=== PATIENT | female | born 1955 ===

== ENCOUNTER 2018-01-28 06:07 | Inpatient (IN) | payer OTHER ==
--- NOTE | 2018-01-28 06:15 | C.PDOC ---
History Of Present Illness Patient last seen at baseline was around 9PM before going to bed. Pt woke up around 5:30 and tried to go to the bathroom and felt that her right leg was weak and her right arm as well. Speaking in complete sentences. States her right jaw feels tight, NO chest pain. No f/c/n/v. Patient does move all extremities. Patient has a history of previous TIA and on plavix Time Seen by Provider: 01/28/18 06:13 History Per: Patient History/Exam Limitations: no limitations Onset/Duration Of Symptoms: Hrs (8) Current Symptoms Are (Timing): Better Severity: Moderate Pain Scale Rating Of: 5 Reports Recently: Seen In ED, Treated By A Physician Recent travel outside of the [place]: No Additional History Per: Family Past Medical History Reviewed: Historical Data, Nursing Documentation, Vital Signs Family History: States: No Known Family Hx Review Of Systems Constitutional: Negative for: Fever, Chills Eyes: Negative for: Vision Change ENT: Negative for: Throat Pain Cardiovascular: Negative for: Chest Pain Respiratory: Negative for: Shortness of Breath Gastrointestinal: Negative for: Nausea, Vomiting, Abdominal Pain Genitourinary: Negative for: Dysuria Musculoskeletal: Negative for: Back Pain Skin: Negative for: Rash Neurological: Positive for: Weakness Psych: Negative for: Anxiety Physical Exam - Physical Exam Appears: Non-toxic Skin: Warm, Dry Head: Normacephalic Eye(s): bilateral: Normal Inspection Oral Mucosa: Moist Neck: Trachea Midline, Supple Chest: Symmetrical Cardiovascular: Rhythm Regular Respiratory: No Rales, No Rhonchi, No Wheezing Gastrointestinal/Abdominal: Soft, No Tenderness, No Distention Back: Normal Inspection Extremity: No Tenderness Extremity: Bilateral: Atraumatic, No Pedal Edema, Normal Color And Temperature Pulses: Left Dorsalis Pedis: Normal, Right Dorsalis Pedis: Normal Neurological/Psych: Oriented x3, Normal Cognition Gait: Unable To Assess ED Course And Treatment ECG: Interpreted By Me, Viewed By Me ECG Rhythm: Sinus Rhythm (61), Nonspecific Changes O2 Sat by Pulse Oximetry: 98 Pulse Ox Interpretation: Normal Progress Note: 6:[address] epstein. Not tpa candidate. Give 81 mg asa, mri/a, eeg. 6:52 am pt now states that she also fell,and hurt her back. no loc Critical Care Time - Critical Care Note Total Time (in mins): 30 Documented critical care: time excludes all time spent performing seperately billable procedures. NIHSS Stroke Scale - Date/Time Evaluation Performed Date Performed: 01/28/18 Time Performed: 06:08 When Was NIHSS Performed: Baseline - How Severe is the Stroke Level of Consciousness: 0=Alert LOC to Questions: 0=Both comments correct LOC to commands: 0=Obeys both correctly Best Gaze: 0=Normal Visual: 0=No visual loss Facial: 0=Normal Motor Arm - Left: 0=No drift Motor Arm - Right: 1=Drift noted before 10 sec Motor Leg - Left: 0=No drift Motor Leg - Right: 3=No effort against gravity (falls immediately) Limb Ataxia: 0=Absent Sensory: 0=Normal Best Language: 0=No aphasia Dysarthia: 0=Normal articulation Extinction & Inattention (Neglect): 0=Normal, no object Score: 4 rTPA Inclusion/Exclusion - Refusal of Treatment Patient Refused Treatment: No - Inclusion Criteria for Altepase Patient is 18 years or Older: Yes The Clinical Diagnosis of Ischemic Stroke That is Causing a Potentially Disabling Neurological Deficit: Yes Time of Onset is Well Established to be Less Than 270 Minute Before Treatment Would Begin: No Risk/Benefit Discussed With Patient/Family Member Present: Yes - Exclusion Criteria for Altepase Uncontrolled Hypertension at Time of Treatment (Systolic BP above 185 or Diastolic BP above 110 mmHg): No Active Internal Bleeding: No Known Bleeding Diathesis Including but Not Limited to: Platelets Below 100,000/mm,PTT Above 40 sec After Heparin Use, Current Use of Oral Anitcoagulant With INR Greater Than 1.7 or PT Greater Than 15 secs: No Evidence of an Intracranial Hemorrhage: No Evidence of Major Acute Infarct With Signs Greater Than 1/3 MCA Territory: No Suspicion of Subarachnoid Hemorrhage on Pretreatment Evaluation Even if CT Head Negative For Hemorrhage: No - Warning to TPA With Conditions Following Conditions Weighed Against Anticipated Benefit: Yes Condition: Increase Risk of Bleed Due to Comorbid Condition Additional Condition (For 3-4.5 Hour Window): Prior Stroke and Diabetes, Any anticoagulant use prior to admission (Even if INR less than 1.7) Disposition Counseled Patient/Family Regarding: Studies Performed, Diagnosis - Disposition Disposition Time: 06:13 Condition: CRITICAL - POA Core Measure Indicators: Code Stroke - Clinical Impression Clinical Impression: Right sided weakness Physician Patient Turnover Patient Signed Over To: Raswant,Dez Handoff Comments: pending labs, ct, neuro consult and dispo
[2018-01-28] MEDS ORDERED: Iodixanol 320 MG/ML 100 ML BOTTLE IV ONE (06:21)
[2018-01-28 06:39] LABS: INR 1.1; PROTHROMBIN TIME 11.6 SECONDS (9.7-12.2)
[2018-01-28 07:05] LABS: ALB/GLOB RATIO 1.4 (1.0-2.1); ALBUMIN 3.4 g/dL (3.5-5.0); ALT/SGPT 29 U/L (9-52); AST/SGOT 29 U/L (14-36); BLOOD UREA NITROGEN 15 mg/dL (7-17); CALCIUM 8.2 mg/dl (8.6-10.4); GFR NON-AFRICAN AMERICAN > 60; HDL CHOLESTEROL 68 mg/dL (30-70)
[2018-01-28] MEDS ORDERED: Sodium Chloride 0.9% 1,000 ML ONE (07:10)
[2018-01-28] MEDS: Sodium Chloride 0.9% 1,000 ML IV SCH ×2 (07:10→18:58)
[2018-01-28 07:16] LABS: BASO % 0.3 % (0.0-2.0); EOS # 0.1 K/uL (0.0-0.7); EOS % 1.1 % (0.0-4.0); HEMOGLOBIN 12.5 g/dL (11.0-16.0); LDL CHOLESTEROL 59 mg/dL (0-129); LYMPH # 2.1 K/uL (1.0-4.3); LYMPH % 25.1 % (20.0-40.0); MEAN CELL VOLUME 91.2 fL (81.0-99.0); MEAN CORPUSCULAR HEMOGLOBIN 31.4 pg (27.0-31.0); MEAN CORPUSCULAR HGB CONC 34.4 g/dL (33.0-37.0); MEAN PLATELET VOLUME 7.8 fL (7.2-11.7); MONO # 0.4 K/uL (0.0-0.8); MONO % 5.4 % (0.0-10.0); NEUT # 5.7 K/uL (1.8-7.0); NEUT % 68.1 % (50.0-75.0); NRBC % 0.1 % (0.0-2.0); RBC 3.99 Mil/uL (3.80-5.20); RED CELL DISTRIBUTION WIDTH 13.4 % (11.5-14.5); WHITE BLOOD COUNT 8.3 K/uL (4.8-10.8)
[2018-01-28 08:14] LABS: SQUAMOUS EPITHIAL < 1 /hpf (0-5); URINE BILIRUBIN NEGATIVE (NEGATIVE); URINE BLOOD 1+ (NEGATIVE); URINE CLARITY Clear (Clear); URINE COLOR Straw (YELLOW); URINE GLUCOSE (UA) NORMAL (Normal); URINE LEUKOCYTE ESTERASE NEG Leu/uL (Negative); URINE PROTEIN NEGATIVE (NEGATIVE); URINE UROBILINOGEN NORMAL mg/dL (0.2-1.0)
--- NOTE | 2018-01-28 08:21 | CT ---
Date of service: 01/28/2018 PROCEDURE: CT HEAD WITHOUT CONTRAST. HISTORY: Code Stroke COMPARISON: None available. TECHNIQUE: Axial computed tomography images were obtained through the head/brain without intravenous contrast. Radiation dose: Total exam DLP = 1003.37 mGy-cm. This CT exam was performed using one or more of the following dose reduction techniques: Automated exposure control, adjustment of the mA and/or kV according to patient size, and/or use of iterative reconstruction technique. FINDINGS: HEMORRHAGE: No intracranial hemorrhage. BRAIN: Scattered focal lucencies in the subcortical and periventricular white matter suggestive for chronic microvascular ischemic change. Focal encephalomalacia from chronic infarcts in the right frontal and left parietal lobes. VENTRICLES: Generalized parenchymal atrophy with symmetrical dilatation of the ventricles and sulci. CALVARIUM: Unremarkable. Small bony exostosis emanating from the anterior right frontal cranium. PARANASAL SINUSES: Unremarkable as visualized. No significant inflammatory changes. MASTOID AIR CELLS: Unremarkable as visualized. No inflammatory changes. OTHER FINDINGS: None. IMPRESSION: No acute intracranial abnormality. Chronic microvascular ischemic changes. Encephalomalacia from chronic infarcts in the right frontal and left parietal regions. Generalized parenchymal atrophy as demonstrated by symmetrical dilatation of the ventricles and sulci. If there is persistent concern for acute ischemic change, further evaluation with MRI is recommended. These findings were preliminarily reported at 6:44 a.m. on 01/28/[address] Chester Barcenas from [facility].
[2018-01-28 08:30] VITALS: RESP 20
--- NOTE | 2018-01-28 08:38 | RAD ---
Chest x-ray single frontal view HISTORY: Code stroke. COMPARISON: 01/28/2018 FINDINGS: Mild venous congestion. Right hilar prominence. Tortuous aorta with atherosclerotic calcification degenerative changes in the spine and shoulders. Impression: Mild venous congestion. Right hilar prominence.
--- NOTE | 2018-01-28 09:03 | CP.PCM.HP ---
<Yessenia Remy - Last Filed: 01/28/18 17:33> History of Present Illness - History of Present Illness History of Present Illness: CC "right sided arm and leg weakness, right jaw feels tired" HPI: Patient is a 62 year old female who presents after she experienced right sided arm and leg weakness after she woke up at 5am this morning. She was last seen at baseline at 9pm prior to going to bed. She states she took 1 to 2 steps after she woke up and experienced shaking of her right leg after which she fell straight down to the floor. She found she could no longer move her right arm or her right leg. She landed on her buttock, aggravating her pain in her low back. She denies losing consciousness or hitting her head when she fell down. Daughter at bedside states she heard her fall and ran to patient and found her with her eyes open, not shaking, but unable to move her right arm or her right leg. Patient states she felt that the right side of her jaw was more tired and heavy, but was unable to state if she felt like she had any slurred speech. She experienced some nausea at that time. Daughter called ambulance to bring patient in to the hospital via ambulance. She states she began to recover strength in her right arm after she arrived to the ED. She currently states she is unable to move her right leg. She states she had a prior TIA in March 2016 when she was admitted to [facility], and has been on Plavix since. She was able to move all her extremities after her last TIA. She currently denies fevers, chills, headache, lightheadedness, chest pain, shortness of breath, abdominal pain, vomiting, diarrhea, diaphoresis, palpitations, urinary discomfort, leg pain or leg swelling. She admits she had a recent left ear infection for which she was treated with a 7 day course of Penicillin which she finished yesterday. PMH: Hyperlipidemia, TIA, Vertigo, recent left ear infection PSH: L4-5 herniated disk, abdominal hernia repair Social hx: denies tobacco, alcohol or drug use. Currently works as a cashier courtesy booth. Family hx: no history of stroke, mother had FL in her 70s. Father had MIs in his 60s. Home meds: Lipitor 20mg PO, Plavix 75mg, Meclizine 25mg, PCN Allergies: NKDA PMD: Dr. Garry Brady Neuro: Dr. Alanis [phone] Health care proxy: Inderjit () [phone] No advance directive Full code Present on Admission - Present on Admission Any Indicators Present on Admission: No Review of Systems - Constitutional Constitutional: Weakness. absent: Chills, Fever - EENT Eyes: absent: Change in Vision, Loss of Vision Ears: absent: Decreased Hearing, Dizziness - Cardiovascular Cardiovascular: absent: Chest Pain, Chest Pain at Rest, Diaphoresis, Dyspnea, Palpitations, Syncope - Respiratory Respiratory: absent: Cough, Dyspnea - Gastrointestinal Gastrointestinal: Nausea. absent: Diarrhea, Vomiting - Genitourinary Genitourinary: absent: Dysuria, Urinary Incontinence - Musculoskeletal Musculoskeletal: Back Pain, Muscle Weakness - Integumentary Integumentary: absent: Pruritus, Rash - Neurological Neurological: Weakness. absent: Headaches - Psychiatric Psychiatric: absent: Anxiety, Depression Past Patient History - Past Social History Smoking Status: Never Smoked - NEUROLOGICAL HX Cerebrovascular Accident: Yes Hx Transient Ischemic Attacks (TIA): Yes - HEENT Other/Comment: ear infection - PSYCHIATRIC Hx Substance Use: No Meds Allergies/Adverse Reactions: Allergies Allergy/AdvReac Type Severity Reaction Status Date / Time No Known Allergies Allergy Unverified 01/28/18 06:13 Physical Exam - Constitutional Appears: No Acute Distress - Head Exam Head Exam: ATRAUMATIC, NORMOCEPHALIC - Eye Exam Eye Exam: EOMI, PERRL - ENT Exam ENT Exam: Mucous Membranes Moist - Neck Exam Neck exam: Positive for: Full Rom. Negative for: Tenderness - Respiratory Exam Respiratory Exam: Clear to Auscultation Bilateral. absent: Rales, Rhonchi, Wheezes, Respiratory Distress, Stridor - Cardiovascular Exam Cardiovascular Exam: REGULAR RHYTHM, +S1, +S2. absent: Gallop, Rubs, Systolic Murmur - GI/Abdominal Exam GI & Abdominal Exam: Normal Bowel Sounds, Soft. absent: Distended, Firm, Guarding, Hernia, Rigid, Tenderness - Extremities Exam Extremities exam: Positive for: pedal pulses present. Negative for: calf tenderness, pedal edema - Neurological Exam Neurological exam: Alert, Oriented x3 Additional comments: Minimal right sided jaw droop No neglect in visual mondraogn Sensation intact in face bilaterally Left arm: Able to lift and stay lifted for 10 seconds with no drift. Good pbx operator strength. Negative German's sign. Right arm: Able to lift hand, no drift. Slightly weaker compared to left. Negative German's sign. Right leg: Unable to lift leg against gravity. Sensation intact and unchanged from left leg. Strength 3/5 Left leg: Sensation unchanged from right. Able to lift leg against gravity. No drift. Good dorsiflexion and plantarflexion. Strength 5/5. Unable to complete Romberg's since unable to stand. Able to do finger to nose without difficulty. Unable to do heel to santamaria using right leg. - Psychiatric Exam Psychiatric exam: Normal Affect, Normal Mood - Skin Skin Exam: Dry, Intact, Warm Results - Vital Signs Recent Vital Signs: Last Vital Signs Temp 98 F 01/28/18 08:20 Pulse 59 L 01/28/18 08:20 Resp 20 01/28/18 08:20 BP 127/65 01/28/18 08:20 Pulse Ox 97 01/28/18 08:20 - Labs Result Diagrams: 01/28/18 06:18 01/28/18 06:18 Labs: Laboratory Results - last 24 hr 01/28/18 01/28/18 01/28/18 06:18 06:18 06:18 WBC 8.3 RBC 3.99 Hgb 12.5 Hct 36.3 MCV 91.2 MCH 31.4 H MCHC 34.4 RDW 13.4 Plt Count 214 MPV 7.8 Neut % (Auto) 68.1 Lymph % (Auto) 25.1 [place] % (Auto) 5.4 Eos % (Auto) 1.1 Baso % (Auto) 0.3 Neut # (Auto) 5.7 Lymph # (Auto) 2.1 [place] # (Auto) 0.4 Eos # (Auto) 0.1 Baso # (Auto) 0.0 PT 11.6 INR 1.1 APTT 30 Sodium 137 Potassium 3.6 Chloride 106 Carbon Dioxide 23 Anion Gap 12 BUN 15 Creatinine 0.5 L Est GFR ( Amer) > 60 Est GFR (Non-Af Amer) > 60 Random Glucose 153 H Calcium 8.2 L Total Bilirubin 0.5 AST 29 ALT 29 Alkaline Phosphatase 66 Troponin I < 0.0120 Total Protein 5.9 L Albumin 3.4 L Globulin 2.5 Albumin/Globulin Ratio 1.4 Triglycerides 55 Cholesterol 125 LDL Cholesterol Direct 59 HDL Cholesterol 68 Urine Color Urine Clarity Urine pH Ur Specific [place] Urine Protein Urine Glucose (UA) Urine Ketones Urine Blood Urine Nitrate Urine Bilirubin Urine Urobilinogen Ur Leukocyte Esterase Urine WBC (Auto) Urine RBC (Auto) Ur Squamous Epith Cells Blood Type Antibody Screen 01/28/18 01/28/18 06:24 07:55 WBC RBC Hgb Hct MCV MCH MCHC RDW Plt Count MPV Neut % (Auto) Lymph % (Auto) [place] % (Auto) Eos % (Auto) Baso % (Auto) Neut # (Auto) Lymph # (Auto) [place] # (Auto) Eos # (Auto) Baso # (Auto) PT INR APTT Sodium Potassium Chloride Carbon Dioxide Anion Gap BUN Creatinine Est GFR ( Amer) Est GFR (Non-Af Amer) Random Glucose Calcium Total Bilirubin AST ALT Alkaline Phosphatase Troponin I Total Protein Albumin Globulin Albumin/Globulin Ratio Triglycerides Cholesterol LDL Cholesterol Direct HDL Cholesterol Urine Color Straw Urine Clarity Clear Urine pH 7.0 Ur Specific [place] 1.023 Urine Protein Negative Urine Glucose (UA) Normal Urine Ketones Negative Urine Blood 1+ H Urine Nitrate Negative Urine Bilirubin Negative Urine Urobilinogen Normal Ur Leukocyte Esterase Neg Urine WBC (Auto) < 1 Urine RBC (Auto) 1 Ur Squamous Epith Cells < 1 Blood Type B POSITIVE Antibody Screen Negative Assessment & Plan - Assessment and Plan (Free Text) Plan: Assessment/plan 62 year old female with history of TIA and HLD who presents with right sided arm and leg weakness that started this morning. Right sided weakness Acute Ischemia CVA, Left posterior parietal region - EKG: SR at 81, no ST-T changes. - CXR: 01/28/18 mild venous congestion. right hilar prominence. - CT brain (01/28/18) No acute intracranial abnormality. Chronic microvascular ischemic changes. Encephalomalacia from chronic infarcts in the right frontal and left parietal regions.Generalized parenchymal atrophy as demonstrated by symmetrical dilatation of the ventricles and sulci.If there is persistent concern for acute ischemic change, further evaluation with MRI is recommended. 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 Recommend follow-up thyroid ultrasound. Note that this report was placed in [place] review folder follow up - MRI brain (01/28/18) There appears to be small area of acute ischemia in the left posterior superior parietal subcortical region. Chronic infarcts again not ed in the left posterior parieto-occipital watershed zone and right frontal lobes unchanged.No acute intracranial hemorrhage.Suspect small arachnoid cyst right superior posterior fronto- parietal region. Mild to moderate central volume loss. - Carotid doppler (01/28/18) RIGHT: Duplex scan does not suggest hemodynamically significant stenosis of the right extracranial carotid arteries. LEFT: Duplex scan does not suggest hemodynamically significant stenosis of the left extracranial carotid arteries. - F/u ECHO report - Neurology Dr. Obando consulted, help appreciated - Case discussed with Dr. Alanis, patient's neurologist who stated that patient has history of prior TIA in Mar 2016, when her MRI revealed acute left posterior parietal infarct. Carotid dopplers at that time were negative for stenosis. MRA done at that time was also unremarkable as per Dr. Alanis. He stated that patient can have ASA. - A1c 6.3 - TSH 1.06 free T4 0.99 - Trops x2 negative - Neurochecks - f/u ESR, CRP, folate, B12, Vitamin D Meds: - ASA 81mg - Plavix 75mg PO - Crestor 10mg PO HS - NS @ 100cc/hr IV - Tylenol 650mg PRN History of HLD Crestor 10mg PO HS Lipid panel: TG 53 Chol 125 LDL 59 HDL 68 PPX: DVT: Lovenox 40mg SC daily GI: not indicated at this time Heart healthy diet, 2g Na PT/OT Case discussed with Dr. Blade Remy, PGY1 <Valeria Murguia V - Last Filed: 01/28/18 22:40> Results - Vital Signs Recent Vital Signs: Last Vital Signs Temp 98.2 F 01/28/18 14:52 Pulse 64 01/28/18 16:00 Resp 20 01/28/18 14:52 BP 122/72 01/28/18 14:52 Pulse Ox 98 01/28/18 14:52 - Labs Result Diagrams: 01/28/18 06:18 01/28/18 06:18 Labs: Laboratory Results - last 24 hr 01/28/18 01/28/18 01/28/18 06:10 06:18 06:18 WBC 8.3 RBC 3.99 Hgb 12.5 Hct 36.3 MCV 91.2 MCH 31.4 H MCHC 34.4 RDW 13.4 Plt Count 214 MPV 7.8 Neut % (Auto) 68.1 Lymph % (Auto) 25.1 [place] % (Auto) 5.4 Eos % (Auto) 1.1 Baso % (Auto) 0.3 Neut # (Auto) 5.7 Lymph # (Auto) 2.1 [place] # (Auto) 0.4 Eos # (Auto) 0.1 Baso # (Auto) 0.0 ESR PT 11.6 INR 1.1 APTT 30 Sodium Potassium Chloride Carbon Dioxide Anion Gap BUN Creatinine Est GFR ( Amer) Est GFR (Non-Af Amer) POC Glucose (mg/dL) 164 H Random Glucose Hemoglobin A1c Calcium Total Bilirubin AST ALT Alkaline Phosphatase Total Creatine Kinase CK-MB (Mass) Troponin I C-Reactive Protein Total Protein Albumin Globulin Albumin/Globulin Ratio Triglycerides Cholesterol LDL Cholesterol Direct HDL Cholesterol Vitamin B12 Folate Free T4 TSH 3rd Generation Urine Color Urine Clarity Urine pH Ur Specific [place] Urine Protein Urine Glucose (UA) Urine Ketones Urine Blood Urine Nitrate Urine Bilirubin Urine Urobilinogen Ur Leukocyte Esterase Urine WBC (Auto) Urine RBC (Auto) Ur Squamous Epith Cells Blood Type Antibody Screen 01/28/18 01/28/18 01/28/18 06:18 06:18 06:24 WBC RBC Hgb Hct MCV MCH MCHC RDW Plt Count MPV Neut % (Auto) Lymph % (Auto) [place] % (Auto) Eos % (Auto) Baso % (Auto) Neut # (Auto) Lymph # (Auto) [place] # (Auto) Eos # (Auto) Baso # (Auto) ESR PT INR APTT Sodium 137 Potassium 3.6 Chloride 106 Carbon Dioxide 23 Anion Gap 12 BUN 15 Creatinine 0.5 L Est GFR ( Amer) > 60 Est GFR (Non-Af Amer) > 60 POC Glucose (mg/dL) Random Glucose 153 H Hemoglobin A1c 6.3 Calcium 8.2 L Total Bilirubin 0.5 AST 29 ALT 29 Alkaline Phosphatase 66 Total Creatine Kinase CK-MB (Mass) Troponin I < 0.0120 C-Reactive Protein Total Protein 5.9 L Albumin 3.4 L Globulin 2.5 Albumin/Globulin Ratio 1.4 Triglycerides 55 Cholesterol 125 LDL Cholesterol Direct 59 HDL Cholesterol 68 Vitamin B12 Folate Free T4 TSH 3rd Generation Urine Color Urine Clarity Urine pH Ur Specific [place] Urine Protein Urine Glucose (UA) Urine Ketones Urine Blood Urine Nitrate Urine Bilirubin Urine Urobilinogen Ur Leukocyte Esterase Urine WBC (Auto) Urine RBC (Auto) Ur Squamous Epith Cells Blood Type B POSITIVE Antibody Screen Negative 01/28/18 01/28/18 01/28/18 07:55 11:52 11:52 WBC RBC Hgb Hct MCV MCH MCHC RDW Plt Count MPV Neut % (Auto) Lymph % (Auto) [place] % (Auto) Eos % (Auto) Baso % (Auto) Neut # (Auto) Lymph # (Auto) [place] # (Auto) Eos # (Auto) Baso # (Auto) ESR PT INR APTT Sodium Potassium Chloride Carbon Dioxide Anion Gap BUN Creatinine Est GFR ( Amer) Est GFR (Non-Af Amer) POC Glucose (mg/dL) Random Glucose Hemoglobin A1c Calcium Total Bilirubin AST ALT Alkaline Phosphatase Total Creatine Kinase 67 CK-MB (Mass) 0.61 Troponin I < 0.0120 C-Reactive Protein Total Protein Albumin Globulin Albumin/Globulin Ratio Triglycerides Cholesterol LDL Cholesterol Direct HDL Cholesterol Vitamin B12 Folate Free T4 0.99 TSH 3rd Generation 1.06 Urine Color Straw Urine Clarity Clear Urine pH 7.0 Ur Specific [place] 1.023 Urine Protein Negative Urine Glucose (UA) Normal Urine Ketones Negative Urine Blood 1+ H Urine Nitrate Negative Urine Bilirubin Negative Urine Urobilinogen Normal Ur Leukocyte Esterase Neg Urine WBC (Auto) < 1 Urine RBC (Auto) 1 Ur Squamous Epith Cells < 1 Blood Type Antibody Screen 01/28/18 01/28/18 01/28/18 18:23 18:23 18:23 WBC RBC Hgb Hct MCV MCH MCHC RDW Plt Count MPV Neut % (Auto) Lymph % (Auto) [place] % (Auto) Eos % (Auto) Baso % (Auto) Neut # (Auto) Lymph # (Auto) [place] # (Auto) Eos # (Auto) Baso # (Auto) ESR 3 PT INR APTT Sodium Potassium Chloride Carbon Dioxide Anion Gap BUN Creatinine Est GFR ( Amer) Est GFR (Non-Af Amer) POC Glucose (mg/dL) Random Glucose Hemoglobin A1c Calcium Total Bilirubin AST ALT Alkaline Phosphatase Total Creatine Kinase 69 CK-MB (Mass) 0.57 Troponin I < 0.0120 C-Reactive Protein < 5.00 Total Protein Albumin Globulin Albumin/Globulin Ratio Triglycerides Cholesterol LDL Cholesterol Direct HDL Cholesterol Vitamin B12 845 Folate 12.9 Free T4 TSH 3rd Generation Urine Color Urine Clarity Urine pH Ur Specific [place] Urine Protein Urine Glucose (UA) Urine Ketones Urine Blood Urine Nitrate Urine Bilirubin Urine Urobilinogen Ur Leukocyte Esterase Urine WBC (Auto) Urine RBC (Auto) Ur Squamous Epith Cells Blood Type Antibody Screen Attending/Attestation - Attestation I have personally seen and examined this patient.: Yes I have fully participated in the care of the patient.: Yes I have reviewed all pertinent clinical information: Yes Notes (Text): Patient seen, examined and case discussed with medical technologist. Patient was called as code stroke at 5am this morning; discussed with ED physician, Dr. Dez Rayo endorsed from prior shift. Neurology plant operations worker informed of consult. Patient not TPA candidate recommended for aspirin and started on IV fluids by ED. Patient is a former patient of Dr. Alanis, however she lost her insurance recently. Resident has contacted Dr. Alanis, and aware Dr. Obando will be seeing in the hospital. Patient has had prior history of stroke wherein she was taking Plavix as secondary stroke prophylaxis and there is no aspirin contraindication when resident has spoken with her prior neurologist. Patient has prior history of stroke; which has showed left posterior parietal infiarct. Cartoid doppler had been negative and MRA had been negative in the past. 1) Acute Ischemia CVA, Left posterior parietal region Right sided weakness Assessment/Plan * Neurology Dr. Obando consulted, help appreciated * Recommends non-contrast CT tomorrow of the head if does not show he morrhagic conversion, then suggest for coumadin * Telemetry * Echocardiogram with bubble study * Carotid ultrasounds bilaterally. * Check hemoglobin A-1 C, lipid panel, ESR, CRP, SIMONE, B12, folate, TSH, vitamin D levels. * Q 2 hour neuro-checks (note our telemetry floor support Q4H not Q2H) * Statin for goal LDL less than 70. * Permissive hypertension, do not treat blood pressure less than 220/110 (may start to normalize 48-hours after symptom onset * IV fluids normal saline at 100 mL per hour. * NPO, speech and swallow evaluation. * Resident has discussed with Dr. Alanis, patient's neurologist who stated that patient has history of prior TIA in Mar 2016, when her MRI revealed acute left posterior parietal infarct. Carotid dopplers at that time were negative for stenosis. MRA done at that time was also unremarkable as per Dr. Alanis. He stated that patient can have ASA. * EKG: SR at 81, no ST-T changes. * CXR: 01/28/18 mild venous congestion. right hilar prominence. * CT Head (01/28/18) No acute intracranial abnormality. Chronic microvascular ischemic changes. Encephalomalacia from chronic infarcts in the right frontal and left parietal regions.Generalized parenchymal atrophy as demonstrated by symmetrical dilatation of the ventricles and sulci.If there is persistent concern for acute ischemic change, further evaluation with MRI is recommended. 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 Recommend follow-u p thyroid ultrasound. Note that this report was placed in [place] review folder follow up * MRI brain (01/28/18) There appears to be small area of acute ischemia in the left posterior superior parietal subcortical region. Chronic infarcts again noted in the left posterior parieto-occipital watershed zone and right frontal lobes unchanged.No acute intracranial hemorrhage.Suspect small arachnoid cyst right superior posterior fronto- parietal region. Mild to moderate central volume loss. * Carotid doppler (01/28/18) RIGHT: Duplex scan does not suggest hemodynamically significant stenosis of the right extracranial carotid arteries. LEFT: Duplex scan does not suggest hemodynamically significant st enosis of the left extracranial carotid arteries. * Echocardiogram (no bubble): poor window, tds. normal size la, lv, ra and rv. normal lv wall motion, thickness, systolic and diastolic function with lvef [id number]%. grossly normal looking aortic, mitral, tv, pv not well seens, no pericardial effusion. * Aspirin 81mg PO daily, Plavix 75mg PO daily, Crestor 10mg PoqHS * A1c 6.3 * LEONORA X3: negative * Cardiology consult given possible embolic cause? 2. Lipid Disorder Assessment/Plan * Crestor 10mg PO HS * Lipid panel: TG 53 Chol 125 LDL 59 HDL 68 3. S/P fall Assessment/Plan * Fall risk precaution * PT/OT eval * Noted imaging above illustrated new stroke * no visible ecchymoses or bruising noted on exam 4. Impaired glucose intolerance Assessment/Plan * hgba1c: 6.3 * Monitor in the next 3-4 months to prevent overt diabetes 5. PPX: * DVT Ppx: Lovenox 40mg SC daily * GI ppx: not indicated at this time * Heart healthy diet, 2g Na * PT/OT eval * Aspiration precautions * NS 100cc/hr Disposition: neuro workup in progress. Repeat Head CT in AM. cardiology consult given possible emoblic cause to stroke. NIHSS Stroke Scale - Date/Time Evaluation Performed Date Performed: 01/28/18 Time Performed: 09:25 (patient on the floor) When Was NIHSS Performed: Other - How Severe is the Stoke Level of Consciousness: 0=Alert LOC to Questions: 0=Both comments correct LOC to commands: 0=Obeys both correctly Best Gaze: 0=Normal Visual: 0=No visual loss Facial: 0=Normal Motor Arm - Left: 0=No drift Motor Arm - Right: 1=Drift noted before 10 sec Motor Leg - Left: 0=No drift Motor Leg - Right: 3=No effort against gravity (falls immediately) Limb Ataxia: 0=Absent Sensory: 0=Normal Best Language: 0=No aphasia Dysarthia: 0=Normal articulation Extinction & Inattention (Neglect): 0=Normal, no object Score: 4
--- NOTE | 2018-01-28 09:25 | CT ---
Date of service: 01/28/2018. PROCEDURE: CT Angiography of the neck and brain. HISTORY: Right-sided weakness COMPARISON: Correlation made with concurrent CT scan brain TECHNIQUE: Contiguous helical/transaxial sections of the neck and brain were obtained from the level of the vertex of the skull to the superior mediastinum in the arteriographic phase of enhancement. Coronal and sagittal reformats or also generated. IV contrast dose: 100 cc Visipaque 320 Radiation dose: Total exam DLP = 418.33 mGy-cm. This CT exam was performed using one or more of the following dose reduction techniques: Automated exposure control, adjustment of the mA and/or kV according to patient size, and/or use of iterative reconstruction technique. FINDINGS: CAROTID ARTERIES: The aortic arch is patent. Minimal partially calcified atherosclerotic plaque changes seen along the transverse portion of the aortic. The origins of the great vessels are also. Common carotid arteries, carotid bifurcations and internal carotid arteries including petrous cavernous and supraclinoid segments are patent. There is asymmetry of the vertebral arteries left-sided which is larger in caliber/more dominant than the right side. Basilar artery is patent. 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 The left A1 segment extends distally and than bifurcates distally into left and right distal A2 segments at the level of the lateral ventricles... Note that azygos anterior cerebral artery variance are associated with other on congenital abnormalities including dysgenesis of the corpus callosum and septo-optic dysplasia as well as AVMs to name a few. The middle cerebral arteries and posterior cerebral arteries and their respective distal branches are also patent and appear relatively symmetric. No evidence of large aneurysm nor vascular malformation. OTHER FINDINGS: Note made of an elliptical shaped approximately 8.5 mm low-attenuation lesion left lobe thyroid gland of for which follow-up thyroid ultrasound is recommended. 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 Low-attenuation lesion left lobe thyroid gland. Recommend follow-up thyroid ultrasound. Note that this report was placed in PA review folder follow up
--- NOTE | 2018-01-28 12:08 | MRI ---
Date of service: 01/28/2018 PROCEDURE: MRI BRAIN WITHOUT CONTRAST HISTORY: Right sided weakness, prior of TIA COMPARISON: None available. TECHNIQUE: Multiplanar, multisequence MR images of the brain were obtained without intravenous contrast enhancement. FINDINGS: HEMORRHAGE: No acute parenchymal, subarachnoid or extra-axial hemorrhage. No evidence of hemosiderin deposition seen on gradient echo weighted sequence. DWI: There is a faint a curvilinear focus of restricted diffusion in the left posterior superior parietal subcortical white matter cyst cephalad to a more inferiorly located chronic infarct. Findings may probably represent new acute/subacute ischemic focus. BRAIN PARENCHYMA: As mentioned above, there is a chronic left posterior parieto-occipital watershed zone infarct and chronic right frontal lobe infarct. Minimal of prolonged T2 signal changes seen in the periventricular white matter that likely represents mild FLAIR related CSF interface artifact however possibility of some concomitant minimal chronic periventricular white matter ischemic changes may contribute. Suspect small arachnoid cyst right superior posterior fronto- parietal region Mild to moderate central volume loss. VENTRICLES: No obstructive hydrocephalus. CRANIUM: Calvarium intact ORBITS: Orbits and contents grossly unremarkable. PARANASAL SINUSES/MASTOIDS: There is a opacification of 1 or 2 right-sided ethmoid air cells. VASCULAR SYSTEM: Visualized major vascular flow voids at skull base patent. OTHER FINDINGS: None. IMPRESSION: There appears to be small area of acute ischemia in the left posterior superior parietal subcortical region. Chronic infarcts again noted in the left posterior parieto-occipital watershed zone and right frontal lobes unchanged. No acute intracranial hemorrhage.. Suspect small arachnoid cyst right superior posterior fronto- parietal region Mild to moderate central volume loss.. Note these findings were discussed with 5 T Nurse Lunsford at approximately 12 p.m. with written down and read back verification.
[2018-01-28 12:36] LABS: CK-MB 0.61 ng/mL (0.0-3.38)
--- NOTE | 2018-01-28 14:06 | VASCLAB ---
Date of service: 01/28/2018 PROCEDURE: Carotid Duplex Exam. HISTORY: tia COMPARISON: None available. TECHNIQUE: Grayscale and duplex Doppler evaluation of the cervical carotid and vertebral arteries were performed. The common carotid, carotid bifurcations and cervical Internal Carotid Artery (ICA) and proximal External Carotid Artery (ECA) were evaluated. The vertebral arteries were evaluated for gross patency and flow direction. Report prepared by Gerson Vasquez, BS, RVT FINDINGS: RIGHT CAROTID ARTERIES: 1. Common Carotid Artery: No significant focal plaque formation of the right common carotid artery. Maximum Peak Systolic velocity: 84 cm/sec: End-diastolic velocity 21 cm/sec. 2. Carotid Bifurcation: plaque formation. Maximum Peak Systolic velocity: 82 cm/sec: End-diastolic velocity 24 cm/sec. 3. Internal Carotid Artery: Plaque description: 3.1. Proximal Segment: Peak systolic velocity 69 cm/sec: End-diastolic velocity 22 cm/sec - % stenosis 0-15% 3.2. Middle Segment: Peak systolic velocity 80 cm/sec: End-diastolic velocity 33 cm/sec - % stenosis 0-15% 3.3. Distal Segment: Peak systolic velocity 122 cm/sec: End-diastolic velocity 36 cm/sec - % stenosis 0-15% 4. External Carotid Artery: No significant focal plaque formation. Peak systolic velocity 83 cm/sec 5. ICA/CCA Ratio: 1.5 LEFT CAROTID ARTERIES: 1. Common Carotid Artery: No significant focal plaque formation of the left common carotid artery. Maximum Peak Systolic velocity: 87 cm/sec: End-diastolic velocity 29 cm/sec. 2. Carotid Bifurcation: plaque formation. Maximum Peak Systolic velocity: 68 cm/sec: End-diastolic velocity 24 cm/sec. 3. Internal Carotid Artery: Plaque description: 3.1. Proximal Segment: Peak systolic velocity 100 cm/sec: End-diastolic velocity 36 cm/sec - % stenosis 0-15% 3.2. Middle Segment: Peak systolic velocity 48 cm/sec: End-diastolic velocity 20 cm/sec - % stenosis 0-15% 3.3. Distal Segment: Peak systolic velocity 53 cm/sec: End-diastolic velocity 21 cm/sec - % stenosis 0-15% 4. External Carotid Artery: No significant focal plaque formation. Peak systolic velocity 90 cm/sec 5. ICA/CCA Ratio: 1.1 VERTEBRAL ARTERIES: 1. Right Vertebral Artery: The right vertebral artery flow direction is antegrade. 2. Left Vertebral Artery: The left vertebral artery flow direction is antegrade. OTHER FINDINGS: 1. Right Brachial Blood pressure: 142 mmHg. 2. Left Brachial Blood pressure: 136 mmHg. 3. No atherosclerotic calcification present IMPRESSION: RIGHT: Duplex scan does not suggest hemodynamically significant stenosis of the right extracranial carotid arteries. LEFT: Duplex scan does not suggest hemodynamically significant stenosis of the left extracranial carotid arteries.
[2018-01-28] MEDS: Enoxaparin 40 mg Syringe SC SCH (14:54)
--- NOTE | 2018-01-28 17:17 | CP.PCM.CON ---
History of Present Illness - History of Present Illness History of Present Illness: Neurology Consultation Note: Mrs. Chan is a 62-year-old woman, who was referred to me by Dr. Murguia, with a past medical history of Hyperlipidemia, TIA, Vertigo, previous ischemic stroke involving the left parietal region who woke up this morning with weakness of the right leg. She was last normal last night at 9 PM. She said that as she stood up this morning, her right leg began shaking and it was weak. She admits to being told in the past that she had a heart rhythm problem, but that it did not require treatment at that time. She is not certain if it was atrial fibrillation, but was told that eventually she would have to be treated with blood thinners. MRI of the brain showed a new high frontal/parietal infarct above the previous one on the left side. She is a patient of Dr. Alanis, but she lost her insurance after her previous stroke due to losing her job. Review of Systems - Constitutional Constitutional: As Per HPI - EENT Eyes: absent: As Per HPI, Blind Spots, Blurred Vision, Change in Vision, Decreased Night Vision, Diplopia, Discharge, Dry Eye, Exophthalmos, Floaters, Irritation, Itchy Eyes, Loss of Peripheral Vision, Pain, Photophobia, Requires Corrective Lenses, Sees Flashes, Spots in Vision, Tunnel Vision, Other Visual Disturbances, Loss of Vision, Other Ears: absent: As Per HPI, Decreased Hearing, Ear Discharge, Ear Pain, Tinnitus, Abnormal Hearing, Disequilibrium, Dizziness, Other Nose/Mouth/Throat: absent: As Per HPI, Epistaxis, Nasal Congestion, Nasal Discharge, Nasal Obstruction, Nasal Trauma, Nose Pain, Post Nasal Drip, Sinus Pain, Sinus Pressure, Bleeding Gums, Change in Voice, Dental Pain, Dry Mouth, Dysphagia, Halitosis, Hoarsness, Lip Swelling, Mouth Lesions, Mouth Pain, Odynophagia, Sore Throat, Throat Swelling, Tongue Swelling, Facial Pain, Neck Pain, Neck Mass, Other - Breasts Breasts: absent: As Per HPI, Change in Shape, Mass, Pain, Nipple Discharge, Nipple Inversion, Skin Changes, Swelling, Other - Cardiovascular Cardiovascular: As Per HPI - Respiratory Respiratory: absent: As Per HPI, Cough, Dyspnea, Hemoptysis, Dyspnea on Exertion, Wheezing, Snoring, Stridor, Pain on Inspiration, Chest Congestion, Excessive Mucous Production, Change in Mucous Color, Pain with Coughing, Other - Gastrointestinal Gastrointestinal: absent: As Per HPI, Abdominal Pain, Belching, Bloating, Change in Bowel Habits, Change in Stool Character, Coffee Ground Emesis, Constipation, Cramping, Diarrhea, Dyspepsia, Dysphagia, Early Satiety, Excessive Flatus, Fecal Incontinence, Heartburn, Hematemesis, Hematochezia, Loose Stools, Melena, Nausea, Odynophagia, Temesmus, Vomiting, Other - Musculoskeletal Musculoskeletal: absent: As Per HPI, Abnormal Gait, Arthralgias, Atrophy, Back Pain, Deformity, Joint Swelling, Limited Range of Motion, Loss of Height, Muscle Cramps, Muscle Weakness, Myalgias, Neck Pain, Numbness, Radiating Pain into Limb, Stiffness, Tingling, Other - Integumentary Integumentary: absent: As Per HPI, Acne, Alopecia, Bleeding Lesions, Change in Hair, Change in Nails, Change in Pigmentation, Changing Lesions, Dry Skin, Erythema, Furuncle, Hirsutism, Lesions, New Lesions, Non-Healing Lesions, Photosensitivity, Pruritus, Rash, Skin Pain, Skin Ulcer, Sores, Striae, Swelling, Unusual Bruising, Wounds, Jaundice, Other - Neurological Neurological: As Per HPI - Psychiatric Psychiatric: absent: As Per HPI, Abnormal Sleep Pattern, Anhedonia, Anxiety, Auditory Hallucinations, Behavioral Changes, Change in Appetite, Change in Libido, Confusion, Depression, Difficulty Concentrating, Hallucinations, Anamika icidal Ideation, Hopelessness, Irritability, Memory Loss, Mood Swings, Panic Attacks, Paranoia, Suicidal Ideation, Visual Hallucinations, Tactile Hallucinations, Other - Endocrine Endocrine: absent: As Per HPI, Change in Body Appearance, Change in Libido, Cold Intolorance, Deepening of Voice, Excessive Sweating, Fatigue, Flushing, Heat Intolorance, Increase in Ring/Shoe/Hat Size, Palpitations, Polydipsia, Polyphagia, Polyuria, Other Past Patient History - Past Social History Smoking Status: Never Smoked - NEUROLOGICAL HX Cerebrovascular Accident: Yes Hx Transient Ischemic Attacks (TIA): Yes - HEENT Other/Comment: ear infection - MUSCULOSKELETAL/RHEUMATOLOGICAL Hx Falls: Yes Hx Herniated Disk: Yes - PSYCHIATRIC Hx Substance Use: No - SURGICAL HISTORY Hx Surgeries: Yes Other/Comment: cervical disc repair - ANESTHESIA Hx Anesthesia: Yes Hx Anesthesia Reactions: No Hx Malignant Hyperthermia: No Has any member of the family had a problem w/ anesthesia?: No Meds Allergies/Adverse Reactions: Allergies Allergy/AdvReac Type Severity Reaction Status Date / Time No Known Allergies Allergy Unverified 01/28/18 06:13 - Medications Medications: Current Medications Acetaminophen (Tylenol 325mg Tab) 650 mg PO Q6 PRN PRN Reason: Pain, moderate (4-7) Aspirin (Aspirin Chewable) [address] [facility] Clopidogrel Bisulfate (Plavix) [address] [facility] Last Admin: 01/28/18 14:54 Dose: 75 mg Enoxaparin Sodium (Lovenox) [address] [facility] Last Admin: 01/28/18 14:54 Dose: 40 mg Sodium Chloride (Sodium Chloride 0.9%) 1,000 mls @ 100 mls/hr IV .Q10H [facility] Last Admin: 01/28/18 07:10 Dose: 100 mls/hr Rosuvastatin Calcium (Crestor) 10 mg PO [facility] Physical Exam - Constitutional Appears: Well - Head Exam Head Exam: ATRAUMATIC, NORMAL INSPECTION, NORMOCEPHALIC - Eye Exam Eye Exam: EOMI, Normal appearance, PERRL - ENT Exam ENT Exam: Mucous Membranes Moist, Normal Exam - Neck Exam Neck exam: Positive for: Normal Inspection - Respiratory Exam Respiratory Exam: Clear to Auscultation Bilateral, NORMAL BREATHING PATTERN - Cardiovascular Exam Cardiovascular Exam: REGULAR RHYTHM, +S1, +S2 - GI/Abdominal Exam GI & Abdominal Exam: Normal Bowel Sounds, Soft. absent: Tenderness - Rectal Exam Rectal Exam: Deferred - Back Exam Back exam: NORMAL INSPECTION - Neurological Exam Neurological exam: Abnormal Gait, Alert, CN II-XII Intact, Oriented x3 Additional comments: Reflexes brisk on the right side. Right pronator drift and decreased fine motor movements on the right side. Right leg is antigravity, but weak 3/5 strength. Left leg is 5/5 strength. NIHSS= 3 Results - Vital Signs Recent Vital Signs: Last Vital Signs Temp 98.2 F 01/28/18 14:52 Pulse 73 01/28/18 14:52 Resp 20 01/28/18 14:52 BP 122/72 01/28/18 14:52 Pulse Ox 98 01/28/18 14:52 - Labs Result Diagrams: 01/28/18 06:18 01/28/18 06:18 Labs: Laboratory Results - last 24 hr 01/28/18 01/28/18 01/28/18 06:10 06:18 06:18 WBC 8.3 RBC 3.99 Hgb 12.5 Hct 36.3 MCV 91.2 MCH 31.4 H MCHC 34.4 RDW 13.4 Plt Count 214 MPV 7.8 Neut % (Auto) 68.1 Lymph % (Auto) 25.1 Mchenry % (Auto) 5.4 Eos % (Auto) 1.1 Baso % (Auto) 0.3 Neut # (Auto) 5.7 Lymph # (Auto) 2.1 Mchenry # (Auto) 0.4 Eos # (Auto) 0.1 Baso # (Auto) 0.0 PT 11.6 INR 1.1 APTT 30 Sodium Potassium Chloride Carbon Dioxide Anion Gap BUN Creatinine Est GFR ( Amer) Est GFR (Non-Af Amer) POC Glucose (mg/dL) 164 H Random Glucose Hemoglobin A1c Calcium Total Bilirubin AST ALT Alkaline Phosphatase Total Creatine Kinase CK-MB (Mass) Troponin I Total Protein Albumin Globulin Albumin/Globulin Ratio Triglycerides Cholesterol LDL Cholesterol Direct HDL Cholesterol Free T4 TSH 3rd Generation Urine Color Urine Clarity Urine pH Ur Specific [place] Urine Protein Urine Glucose (UA) Urine Ketones Urine Blood Urine Nitrate Urine Bilirubin Urine Urobilinogen Ur Leukocyte Esterase Urine WBC (Auto) Urine RBC (Auto) Ur Squamous Epith Cells Blood Type Antibody Screen 01/28/18 01/28/18 01/28/18 06:18 06:18 06:24 WBC RBC Hgb Hct MCV MCH MCHC RDW Plt Count MPV Neut % (Auto) Lymph % (Auto) Mchenry % (Auto) Eos % (Auto) Baso % (Auto) Neut # (Auto) Lymph # (Auto) Mchenry # (Auto) Eos # (Auto) Baso # (Auto) PT INR APTT Sodium 137 Potassium 3.6 Chloride 106 Carbon Dioxide 23 Anion Gap 12 BUN 15 Creatinine 0.5 L Est GFR ( Amer) > 60 Est GFR (Non-Af Amer) > 60 POC Glucose (mg/dL) Random Glucose 153 H Hemoglobin A1c 6.3 Calcium 8.2 L Total Bilirubin 0.5 AST 29 ALT 29 Alkaline Phosphatase 66 Total Creatine Kinase CK-MB (Mass) Troponin I < 0.0120 Total Protein 5.9 L Albumin 3.4 L Globulin 2.5 Albumin/Globulin Ratio 1.4 Triglycerides 55 Cholesterol 125 LDL Cholesterol Direct 59 HDL Cholesterol 68 Free T4 TSH 3rd Generation Urine Color Urine Clarity Urine pH Ur Specific [place] Urine Protein Urine Glucose (UA) Urine Ketones Urine Blood Urine Nitrate Urine Bilirubin Urine Urobilinogen Ur Leukocyte Esterase Urine WBC (Auto) Urine RBC (Auto) Ur Squamous Epith Cells Blood Type B POSITIVE Antibody Screen Negative 01/28/18 01/28/18 01/28/18 07:55 11:52 11:52 WBC RBC Hgb Hct MCV MCH MCHC RDW Plt Count MPV Neut % (Auto) Lymph % (Auto) Mchen[place] % (Auto) Eos % (Auto) Baso % (Auto) Neut # (Auto) Lymph # (Auto) Mchenry # (Auto) Eos # (Auto) Baso # (Auto) PT INR APTT Sodium Potassium Chloride Carbon Dioxide Anion Gap BUN Creatinine Est GFR ( Amer) Est GFR (Non-Af Amer) POC Glucose (mg/dL) Random Glucose Hemoglobin A1c Calcium Total Bilirubin AST ALT Alkaline Phosphatase Total Creatine Kinase 67 CK-MB (Mass) 0.61 Troponin I < 0.0120 Total Protein Albumin Globulin Albumin/Globulin Ratio Triglycerides Cholesterol LDL Cholesterol Direct HDL Cholesterol Free T4 0.99 TSH 3rd Generation 1.06 Urine Color Straw Urine Clarity Clear Urine pH 7.0 Ur Specific [place] 1.023 Urine Protein Negative Urine Glucose (UA) Normal Urine Ketones Negative Urine Blood 1+ H Urine Nitrate Negative Urine Bilirubin Negative Urine Urobilinogen Normal Ur Leukocyte Esterase Neg Urine WBC (Auto) < 1 Urine RBC (Auto) 1 Ur Squamous Epith Cells < 1 Blood Type Antibody Screen Assessment & Plan (1) Stroke Assessment and Plan: Based on the history of two embolic appearing strokes and possible cardiac arrhythmia, the patient should be anticoagulated for secondary stroke prevention. She does not have insurance, therefor social studies teacher will be helpfu l. However, we can start her on coumadin and maintain an INR of 2-3. I recommend a repeat non-contrast CT scan of the head tomorrow and if it does not show any hemorrhagic conversion, we can start coumadin since this most recent stroke is quite small. In addition, I recommend the followin. Telemetry 2. Echocardiogram with bubble study 3. Carotid ultrasounds bilaterally. 4. Check hemoglobin A-1 C, lipid panel, ESR, CRP, SIMONE, B12, folate, TSH, vitamin D levels. 5. Q 2 hour neuro-checks. 6. Statin for goal LDL less than 70. 7. Permissive hypertension, do not treat blood pressure less than 220/110 (may start to normalize 48-hours after symptom onset). 8. IV fluids normal saline at 100 mL per hour. 9. NPO, speech and swallow evaluation. 10. PT/rehab. Please do not hesitate to call back with any new developments, data updates or questions. Thank you for the opportunity to participate in the care of this patient. Status: Acute
[2018-01-28 18:56] LABS: CK-MB 0.57 ng/mL (0.0-3.38)
--- NOTE | 2018-01-28 19:04 | CARD ---
APPROVED REPORT Date of service: 01/28/2018 EXAM: Two-dimensional and M-mode echocardiogram with Doppler and color Doppler. INDICATION CVA/TIA 2D DIMENSIONS LVEF (Bernal's)77 %IVC0.00 cm M-Mode DIMENSIONS RVDd1.22 (2.1-3.2cm)Left Atrium (MM)3.69 (2.5-4.0cm) IVSd0.80 (0.7-1.1cm)Aortic Root3.43 (2.2-3.7cm) LVDd4.76 (4.0-5.6cm)Aortic Cusp Exc.2.03 (1.5-2.0cm) PWd0.85 (0.7-1.1cm)FS (%) 49 % LVDs2.43 (2.0-3.8cm)LVEF (%)80 (>50%) Mitral Valve MV E Quimlqzg61.7cm/sMV A Udgvclfp60.5cm/sE/A ratio0.8 TDI Lateral E' Peak V9.32cm/sMedial E' Peak V5.84cm/sE/Lateral E'8.3 E/Medial E'13.3 Tricuspid Valve TR Peak [id number]/sTR Peak Gr.[id number] <Conclusion> poor window. tds. normal size la,lv & ra rv. normal lv wall motion,thickness,systolic & diastolic funciton with lvef of 65-70%. grossly normal looking aortic,mitral & tv.pv not well seen. mild tr with normal pulmonary systolic pressures of 30 mm of hg. normal size aortic root. no pericardial effusion.
[2018-01-28 19:49] LABS: FOLATE 12.9 ng/mL
[2018-01-29] MEDS: Sodium Chloride 0.9% 1,000 ML IV SCH ×3 (06:02→21:45)
[2018-01-29 07:20] LABS: BASO % 0.4 % (0.0-2.0); EOS % 0.9 % (0.0-4.0); HEMOGLOBIN 12.3 g/dL (11.0-16.0); LYMPH # 1.3 K/uL (1.0-4.3); LYMPH % 24.2 % (20.0-40.0); MEAN CELL VOLUME 90.3 fL (81.0-99.0); MEAN CORPUSCULAR HEMOGLOBIN 31.7 pg (27.0-31.0); MEAN CORPUSCULAR HGB CONC 35.1 g/dL (33.0-37.0); MEAN PLATELET VOLUME 7.7 fL (7.2-11.7); MONO # 0.4 K/uL (0.0-0.8); MONO % 7.3 % (0.0-10.0); NEUT # 3.7 K/uL (1.8-7.0); NEUT % 67.2 % (50.0-75.0); RBC 3.88 Mil/uL (3.80-5.20); RED CELL DISTRIBUTION WIDTH 13.4 % (11.5-14.5); WHITE BLOOD COUNT 5.5 K/uL (4.8-10.8)
[2018-01-29 07:27] LABS: INR 1.1
[2018-01-29 07:58] LABS: ALB/GLOB RATIO 1.2 (1.0-2.1); ALBUMIN 3.1 g/dL (3.5-5.0); ALT/SGPT 32 U/L (9-52); AST/SGOT 25 U/L (14-36); BLOOD UREA NITROGEN 10 mg/dL (7-17); CALCIUM 8.2 mg/dl (8.6-10.4); GFR NON-AFRICAN AMERICAN > 60
--- NOTE | 2018-01-29 09:44 | CP.PCM.PN ---
Subjective - Date & Time of Evaluation Date of Evaluation: 01/29/18 Time of Evaluation: 09:40 - Subjective Subjective: Medical Attending Note: patient seen and examined this morning. Patient reports she feeling better. Patient reports strength coming back into the right arm and right leg. Denies abdominal pain, denies nausea, denies vomitting, denies constipation. patient awaiting CT scan head w/o contrast. patient had been eating when they initially came in. Echo with bubble to be performed on Wednesday when I spoke with the nurse. Objective - Vital Signs/Intake and Output Vital Signs (last 24 hours): Temp Pulse Resp BP Pulse Ox 97.9 F 60 20 113/64 96 01/29/18 07:28 01/29/18 08:00 01/29/18 07:28 01/29/18 07:28 01/29/18 07:28 - Medications Medications: Current Medications Acetaminophen (Tylenol 325mg Tab) 650 mg PO Q6 PRN PRN Reason: Pain, moderate (4-7) Aspirin (Aspirin Chewable) 81 mg PO DAILY [facility] Clopidogrel Bisulfate (Plavix) 75 mg PO DAILY [facility] Last Admin: 01/28/18 14:54 Dose: 75 mg Enoxaparin Sodium (Lovenox) 40 mg SC DAILY [facility] Last Admin: 01/28/18 14:54 Dose: 40 mg Sodium Chloride (Sodium Chloride 0.9%) 1,000 mls @ 100 mls/hr IV .Q10H [facility] Last Admin: 01/29/18 06:02 Dose: 100 mls/hr Rosuvastatin Calcium (Crestor) 10 mg PO HS [facility] Last Admin: 01/28/18 21:29 Dose: 10 mg - Labs Labs: 01/29/18 07:11 01/29/18 07:11 PT 12.0 SECONDS (9.7-12.2) 01/29/18 07:11 INR 1.1 01/29/18 07:11 APTT 30 SECONDS (21-34) 01/28/18 06:18 - Constitutional Appears: Non-toxic, No Acute Distress - Head Exam Head Exam: NORMAL INSPECTION - Eye Exam Eye Exam: EOMI, PERRL. absent: Nystagmus, Scleral icterus Pupil Exam: PERRL - ENT Exam ENT Exam: Mucous Membranes Moist - Respiratory Exam Respiratory Exam: Clear to Ausculation Bilateral, NORMAL BREATHING PATTERN. absent: Rales, Rhonchi, Wheezes - Cardiovascular Exam Cardiovascular Exam: REGULAR RHYTHM, +S1, +S2 - GI/Abdominal Exam GI & Abdominal Exam: Soft, Normal Bowel Sounds. absent: Distended, Firm, Guarding, Rigid, Tenderness, Rebound - Extremities Exam Extremities Exam: absent: Pedal Edema, Tenderness - Neurological Exam Neurological Exam: Alert, Awake, CN II-XII Intact, Oriented x3 Neuro motor strength exam: Left Upper Extremity: 5, Right Upper Extremity: 4, Left Lower Extremity: 5, Right Lower Extremity: 4 - Psychiatric Exam Psychiatric exam: Normal Affect, Normal Mood - Skin Skin Exam: Dry, Intact, Normal Color, Warm Assessment and Plan - Assessment and Plan (Free Text) Assessment: 1) Acute Ischemia CVA, Left posterior parietal region Right sided weakness Assessment/Plan * Neurology Dr. Obando consulted, help appreciated * Recommends non-contrast CT today of the head if does not show hemorrhagic conversion, then suggest for coumadin-->pending * Telemetry * Echocardiogram with bubble study-->for Wednesday * Carotid ultrasounds bilaterally completed noted below * Resident has discussed with Dr. Alanis, patient's neurologist who stated that patient has history of prior TIA in Mar 2016 on admission, when her prior MRI revealed acute left posterior parietal infarct. Carotid dopplers at that time were negative for stenosis. MRA done at that time was also unremarkable as per Dr. Alanis. He stated that patient can have ASA. * EKG: SR at 81, no ST-T changes. * CXR: 01/28/18 mild venous congestion. right hilar prominence. * CT Head (01/28/18) No acute intracranial abnormality. Chronic microvascular ischemic changes. Encephalomalacia from chronic infarcts in the right frontal and left parietal regions.Generalized parenchymal atrophy as demonstrated by symmetrical dilatation of the ventricles and sulci.If there is persistent concern for acute ischemic change, further evaluation with MRI is recommended. 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 Recommend follow- up thyroid ultrasound. Note that this report was placed in [place] review folder follow up * MRI brain (01/28/18) There appears to be small area of acute ischemia in the left posterior superior parietal subcortical region. Chronic infarcts again noted in the left posterior parieto-occipital watershed zone and right frontal lobes unchanged.No acute intracranial hemorrhage.Suspect small arachnoid cyst right superior posterior fronto- parietal region. Mild to moderate central volume loss. * Carotid doppler (01/28/18) RIGHT: Duplex scan does not suggest hemodynamically significant stenosis of the right extracranial carotid arteries. LEFT: Duplex scan does not suggest hemodynamically significant stenosis of the left extracranial carotid arteries. * Echocardiogram (no bubble): poor window, tds. normal size la, lv, ra and rv. normal lv wall motion, thickness, systolic and diastolic function with lvef [id number]%. grossly normal looking aortic, mitral, tv, pv not well seens, no pericardial effusion. * Echo bubble limited-->to be completed on Wednesday * Repeat CT head for today is pending * Aspirin 81mg PO daily, Plavix 75mg PO daily, Crestor 10mg PoqHS * A1c 6.3 * LEONORA X3: negative * Cardiology consult given possible embolic cause? * Neurology is suggesting for Coumadin given embolic nature of stroke * 01/29: patient's strength markedly improved over right upper and right lower extremity compared to yesterday; awaiting CT head. 2. Lipid Disorder Assessment/Plan * Crestor 10mg PO HS * Lipid panel: TG 53 Chol 125 LDL 59 HDL 68 3. S/P fall Assessment/Plan * Fall risk precaution * PT/OT eval * Noted imaging above illustrated new stroke * no visible ecchymoses or bruising noted on exam 4. Impaired glucose intolerance Assessment/Plan * hgba1c: 6.3 * Monitor in the next 3-4 months to prevent overt diabetes 5. PPX: * DVT Ppx: Lovenox 40mg SC daily * GI ppx: not indicated at this time * Heart healthy diet, 2g Na * PT/OT eval * Aspiration precautions * NS 100cc/hr Disposition: neuro workup in progress. Repeat Head CT for this AM. cardiology consult given possible emoblic cause to stroke.
[2018-01-29] MEDS: Enoxaparin 40 mg Syringe SC SCH (09:48)
--- NOTE | 2018-01-29 11:10 | CT ---
Date of service: 01/29/2018 PROCEDURE: CT HEAD WITHOUT CONTRAST. HISTORY: monitor stroke COMPARISON: 01/28/2018 TECHNIQUE: Axial computed tomography images were obtained through the head/brain without intravenous contrast. Radiation dose: Total exam DLP = 1100.49 mGy-cm. This CT exam was performed using one or more of the following dose reduction techniques: Automated exposure control, adjustment of the mA and/or kV according to patient size, and/or use of iterative reconstruction technique. FINDINGS: HEMORRHAGE: No intracranial hemorrhage. BRAIN: Persistent areas of focal encephalomalacia seen within the right frontal as well as left parietal regions, not significantly changed since the prior study. Scattered focal lucencies in the subcortical and periventricular white matter suggestive for chronic microvascular ischemic change. Persistent prominence of the right posterior frontoparietal extra-axial space best seen on series 2 image 25 and series 602, image 49. This measures approximately 2.9 x 1.6 x 1.5 centimeters. This may represent some focal prominence of the CSF space. A small CSF fluid intensity attenuated cystic foci / lesion such as an arachnoid cyst cannot entirely be excluded. Correlation with MRI may be helpful if clinically indicated. VENTRICLES: Unremarkable. No hydrocephalus. CALVARIUM: Unremarkable. Small bony exostosis off the right frontal cranium. PARANASAL SINUSES: Unremarkable as visualized. No significant inflammatory changes. MASTOID AIR CELLS: Unremarkable as visualized. No inflammatory changes. OTHER FINDINGS: None. IMPRESSION: 1. No significant interval change. 2. Chronic microvascular ischemic change. 3. Persistent areas of focal encephalomalacia from chronic infarcts in the right frontal and left parietal regions. If there is persistent concern for acute ischemic change, consider correlation with MRI. 4. Persistent prominence of the right posterior frontoparietal extra-axial space best seen on series 2 image 25 and series 602, image 49. This measures approximately 2.9 x 1.6 x 1.5 centimeters. This may represent some focal prominence of the CSF space. A small CSF fluid intensity attenuated cystic foci / lesion such as an arachnoid cyst cannot entirely be excluded. Correlation with MRI may be helpful if clinically indicated.
[2018-01-29 19:24] LABS: INR 1.1; PROTHROMBIN TIME 11.7 SECONDS (9.7-12.2)
[2018-01-29] MEDS: Enoxaparin 80 mg Syringe SC SCH (21:47)
--- NOTE | 2018-01-29 23:19 | CON ---
DATE: 01/29/2018 HISTORY OF PRESENT ILLNESS: The patient is a 62-year-old female who has a history of mini-stroke some 2 years ago that left her at that time with some degree of right leg weakness, from which she recovered. The patient presented this time with weakness and inability to stand with subsequent fall. The patient stated that as she woke up at 5 a.m. 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 Following that, the patient noted right-sided weakness. She had no difficulty articulating her speech. The patient stated that she sustained a fall on her left hip, and she is left with left hip pain. The patient has been on Plavix since her previous mini-stroke 2 years ago. SOCIAL HISTORY: Nonsmoker. Nondrinker. . Lives with her and 2 children. She works as a cashier parking lot. MEDICATIONS: Aspirin 81 mg once a day, Crestor 10 mg once a day, Lovenox 40 mg once a day, and Plavix 75 mg once a day. REVIEW OF SYSTEMS: No nausea or vomiting. No headache. No dizziness or syncope. PHYSICAL EXAMINATION: GENERAL: The patient is a middle-aged female who does not appear to be in acute distress. VITAL SIGNS: Blood pressure 115/64, heart rate 60, temperature 97.9, and respirations 20. HEENT: Normocephalic. CHEST: Clear. HEART: S1, S2, regular. ABDOMEN: Soft. EXTREMITIES: No edema. LABORATORY DATA: Toay's SMA-7 is within normal limits except for glucose of 125 and BUN of 0.5. Two sets of troponins are negative. Today's hemoglobin, hematocrit, white count, and platelet count are within normal limits. Carotid Doppler does not suggest hemodynamically significant disease. Brain MRI, there appears to be small area of acute ischemia in the left posterosuperior parietal subcortical region. Chronic infarcts again noted in the left posteroparietal occipital watershed zone and right frontal lobe, unchanged. No acute intracranial hemorrhage. A repeat CT scan was done today, no significant interval change, chronic microvascular ischemic changes, persistent area of focal encephalomalacia from chronic infarcts in the right frontal and left parietal region. Head and neck CTA, azygos anterior cerebral artery which bifurcates into left and then right, each segment slightly more distally at the level of the lateral ventricles. Yesterday's EKG, sinus rhythm with nonspecific T-wave abnormality. Echocardiographic study performed yesterday. It had very poor window, normal left breast systolic and diastolic function, grossly normal looking aortic, mitral, and tricuspid valve. Mild tricuspid insufficiency with normal pulmonary artery systolic pressure. ASSESSMENT: Recurrent cerebrovascular accident. RECOMMENDATIONS: Continue current aspirin, Crestor, Plavix, subcutaneous Lovenox. Consider repeat echo study with bubble contrast. Volodymyr Gaspar MD
[2018-01-30 07:33] LABS: BASO % 0.5 % (0.0-2.0); EOS # 0.1 K/uL (0.0-0.7); EOS % 1.5 % (0.0-4.0); HEMOGLOBIN 12.2 g/dL (11.0-16.0); LYMPH # 1.5 K/uL (1.0-4.3); LYMPH % 29.2 % (20.0-40.0); MEAN CORPUSCULAR HEMOGLOBIN 31.3 pg (27.0-31.0); MEAN CORPUSCULAR HGB CONC 34.8 g/dL (33.0-37.0); MEAN PLATELET VOLUME 7.8 fL (7.2-11.7); MONO # 0.4 K/uL (0.0-0.8); MONO % 8.9 % (0.0-10.0); NEUT % 59.9 % (50.0-75.0); RBC 3.9 Mil/uL (3.80-5.20); RED CELL DISTRIBUTION WIDTH 13.2 % (11.5-14.5)
[2018-01-30 07:49] LABS: ALB/GLOB RATIO 1.3 (1.0-2.1); ALBUMIN 3.2 g/dL (3.5-5.0); ALT/SGPT 28 U/L (9-52); AST/SGOT 24 U/L (14-36); BLOOD UREA NITROGEN 10 mg/dL (7-17); CALCIUM 8.2 mg/dl (8.6-10.4); GFR NON-AFRICAN AMERICAN > 60
[2018-01-30] MEDS: Enoxaparin 80 mg Syringe SC SCH (09:03)
[2018-01-30] MEDS: Sodium Chloride 0.9% 1,000 ML IV SCH ×2 (09:06→17:29)
[2018-01-30] MEDS ORDERED: Potassium Chloride 20 mEq ER Tab PO ONE (09:15)
--- NOTE | 2018-01-30 15:25 | CP.PCM.PN ---
Subjective - Date & Time of Evaluation Date of Evaluation: 01/30/18 Time of Evaluation: 15:26 - Subjective Subjective: PGY3 Note for Dr. Graham Patient seen and examined at bedside this AM; patient denies any events overnight and any acute complaints; patient denies fevers/chills, RAINEY, CP, SOB, abdominal pain, N/V/D, dysuria/freq/urg or lower extremity pain/swelling. Objective - Vital Signs/Intake and Output Vital Signs (last 24 hours): Temp Pulse Resp BP Pulse Ox 97.9 F 67 20 110/61 97 01/30/18 08:00 01/30/18 12:14 01/30/18 08:00 01/30/18 08:00 01/30/18 08:00 Intake and Output: 01/30/18 01/30/18 06:59 18:59 Intake Total 1500 Balance 1500 - Medications Medications: Current Medications Acetaminophen (Tylenol 325mg Tab) 650 mg PO Q6 PRN PRN Reason: Pain, moderate (4-7) Aspirin (Aspirin Chewable) 81 mg PO DAILY [facility] Last Admin: 01/30/18 09:03 Dose: 81 mg Clopidogrel Bisulfate (Plavix) 75 mg PO DAILY [facility] Last Admin: 01/30/18 09:03 Dose: 75 mg Enoxaparin Sodium (Lovenox) 70 mg SC Q12 [facility] Last Admin: 01/30/18 09:03 Dose: 70 mg Sodium Chloride (Sodium Chloride 0.9%) 1,000 mls @ 100 mls/hr IV .Q10H [facility] Last Admin: 01/30/18 09:06 Dose: 100 mls/hr Rosuvastatin Calcium (Crestor) 10 mg PO HS [facility] Last Admin: 01/29/18 21:46 Dose: 10 mg Warfarin Sodium (Coumadin) 5 mg PO 1800 [facility] Stop: 01/30/18 18:01 - Labs Labs: 01/30/18 07:23 01/30/18 07:23 PT 11.7 SECONDS (9.7-12.2) 01/29/18 19:14 INR 1.1 01/29/18 19:14 APTT 30 SECONDS (21-34) 01/28/18 06:18 - Constitutional Appears: Well, Non-toxic - Head Exam Head Exam: ATRAUMATIC - Eye Exam Eye Exam: EOMI - ENT Exam ENT Exam: Mucous Membranes Moist - Neck Exam Neck Exam: Full ROM. absent: Lymphadenopathy - Respiratory Exam Respiratory Exam: Clear to Ausculation Bilateral, NORMAL BREATHING PATTERN. absent: Rales, Rhonchi, Wheezes - Cardiovascular Exam Cardiovascular Exam: REGULAR RHYTHM, +S1, +S2 - GI/Abdominal Exam GI & Abdominal Exam: Soft, Normal Bowel Sounds. absent: Tenderness - Extremities Exam Extremities Exam: Full ROM. absent: Calf Tenderness - Back Exam Back Exam: NORMAL INSPECTION. 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 Obando consulted, help appreciated * Recommends non-contrast CT today of the head if does not show hemorrhagic conversion, then suggest for coumadin-->pending * Telemetry * Echocardiogram with bubble study-->for Wednesday * Carotid ultrasounds bilaterally completed noted below * Resident has discussed with Dr. Alanis, patient's neurologist who stated that patient has history of prior TIA in Mar 2016 on admission, when her prior MRI revealed acute left posterior parietal infarct. Carotid dopplers at that time were negative for stenosis. MRA done at that time was also unremarkable as per Dr. Alanis. He stated that patient can have ASA. * EKG: SR at 81, no ST-T changes. * CXR: 01/28/18 mild venous congestion. right hilar prominence. * CT Head (01/28/18) No acute intracranial abnormality. Chronic microvascular ischemic changes. Encephalomalacia from chronic infarcts in the right frontal and left parietal regions.Generalized parenchymal atrophy as demonstrated by symmetrical dilatation of the ventricles and sulci.If there is persistent concern for acute ischemic change, further evaluation with MRI is recommended. 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 Recommend follow- up thyroid ultrasound. Note that this report was placed in [place] review folder follow up * MRI brain (01/28/18) There appears to be small area of acute ischemia in the left posterior superior parietal subcortical region. Chronic infarcts again noted in the left posterior parieto-occipital watershed zone and right frontal lobes unchanged.No acute intracranial hemorrhage.Suspect small arachnoid cyst right superior posterior fronto- parietal region. Mild to moderate central volume loss. * Carotid doppler (01/28/18) RIGHT: Duplex scan does not suggest hemodynamically significant stenosis of the right extracranial carotid arteries. LEFT: Duplex scan does not suggest hemodynamically significant stenosis of the left extracranial carotid arteries. * Echocardiogram (no bubble): poor window, tds. normal size la, lv, ra and rv. normal lv wall motion, thickness, systolic and diastolic function with lvef [id number]%. grossly normal looking aortic, mitral, tv, pv not well seens, no pericardial effusion. * Echo bubble limited-->to be completed on Wednesday * Repeat CT head for today is pending * Aspirin 81mg PO daily, Plavix 75mg PO daily, Crestor 10mg PoqHS * A1c 6.3 * LEONORA X3: negative * Cardiology consult given possible embolic cause? * Neurology is suggesting for Coumadin given embolic nature of stroke * 01/29: patient's strength markedly improved over right upper and right lower extremity compared to yesterday; awaiting CT head. * 01/30: CT was negative for bleed; therapeutic lovenox 70mg SC given last night; will continue with 70mg Q12H; bridge with warfarin * Patient would like Eliquis; as would neurology as per conversation with Dr. 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 Lipid Disorder Assessment/Plan * Crestor 10mg PO HS * Lipid panel: TG 53 Chol 125 LDL 59 HDL 68 3. S/P fall Assessment/Plan * Fall risk precaution * PT/OT eval * Noted imaging above illustrated new stroke * no visible ecchymoses or bruising noted on exam 4. Impaired glucose intolerance Assessment/Plan * hgba1c: 6.3 * Monitor in the next 3-4 months to prevent overt diabetes 5. PPX: * DVT Ppx: Lovenox 40mg SC daily * GI ppx: not indicated at this time * Heart healthy diet, 2g Na * PT/OT eval * Aspiration precautions * NS 100cc/hr Disposition: neuro workup in progress. Repeat Head CT for this AM. cardiology consult given possible emoblic cause to stroke Case discussed and seen with Dr. Santos Arredondo PGY3
--- NOTE | 2018-01-30 17:55 | PN ---
DATE: 01/30/2018 SUBJECTIVE: The patient denies any headache or dizziness. PHYSICAL EXAMINATION: VITAL SIGNS: Blood pressure 120/61, heart rate 58, temperature 97.9, respirations 20. HEENT: Normocephalic. CHEST: Clear. HEART: S1 and S2, regular. EXTREMITIES: No edema. LABORATORY DATA: Today's SMA-7 is within normal limits except for glucose of 117, potassium 3.3, and creatinine 0.5. Today's hemoglobin, hematocrit, white count and platelet count are within normal limit. ASSESSMENT: 1. Recurrent cerebrovascular accident.. 2. Hypokalemia. RECOMMENDATIONS: Continue current aspirin, Plavix. The patient did receive 40 mEq of K-Dur. Continue therapeutic subcutaneous Lovenox and the patient is scheduled for echocardiographic study with bubble contrast. Volodymyr Gaspar MD
[2018-01-31] MEDS: Sodium Chloride 0.9% 1,000 ML IV SCH (06:16)
[2018-01-31 07:19] LABS: BASO % 0.5 % (0.0-2.0); EOS # 0.1 K/uL (0.0-0.7); EOS % 2.2 % (0.0-4.0); HEMOGLOBIN 12.1 g/dL (11.0-16.0); LYMPH # 1.3 K/uL (1.0-4.3); LYMPH % 27.5 % (20.0-40.0); MEAN CORPUSCULAR HEMOGLOBIN 31.6 pg (27.0-31.0); MEAN CORPUSCULAR HGB CONC 35.2 g/dL (33.0-37.0); MEAN PLATELET VOLUME 7.2 fL (7.2-11.7); MONO # 0.4 K/uL (0.0-0.8); MONO % 8.6 % (0.0-10.0); NEUT # 2.9 K/uL (1.8-7.0); NEUT % 61.2 % (50.0-75.0); RBC 3.83 Mil/uL (3.80-5.20); WHITE BLOOD COUNT 4.8 K/uL (4.8-10.8)
[2018-01-31 08:11] LABS: ALB/GLOB RATIO 1.3 (1.0-2.1); ALBUMIN 3.1 g/dL (3.5-5.0); ALT/SGPT 29 U/L (9-52); AST/SGOT 29 U/L (14-36); BLOOD UREA NITROGEN 7 mg/dL (7-17); CALCIUM 8.2 mg/dl (8.6-10.4); GFR NON-AFRICAN AMERICAN > 60
--- NOTE | 2018-01-31 13:46 | CP.PCM.PN ---
Subjective - Date & Time of Evaluation Date of Evaluation: 01/31/18 Time of Evaluation: 13:49 - Subjective Subjective: Neurology Consultation Follow-Up Note: Mrs. Chan is a 62 y/o female who is here for an acute ischemic CVA of the left posterior parietal region. She admits to still having right sided weakness, however, states that it is improved. She denies headache, visual changes, dizziness, slurred speech, nausea, vomiting, extremity pain or swelling. No acute episodes overnight noted. Objective - Vital Signs/Intake and Output Vital Signs (last 24 hours): Temp Pulse Resp BP Pulse Ox 97.8 F 62 20 115/63 98 01/31/18 08:00 01/31/18 08:00 01/31/18 08:00 01/31/18 08:00 01/31/18 08:00 - Medications Medications: Current Medications Acetaminophen (Tylenol 325mg Tab) 650 mg PO Q6 PRN PRN Reason: Pain, moderate (4-7) Apixaban (Eliquis) 2.5 mg PO BID [facility] Last Admin: 01/31/18 09:09 Dose: 2.5 mg Rosuvastatin Calcium (Crestor) 10 mg PO HS [facility] Last Admin: 01/30/18 21:18 Dose: 10 mg - Labs Labs: 01/31/18 07:14 01/31/18 07:14 PT 11.7 SECONDS (9.7-12.2) 01/29/18 19:14 INR 1.1 01/29/18 19:14 APTT 30 SECONDS (21-34) 01/28/18 06:18 - Constitutional Appears: Well, Non-toxic, No Acute Distress - Head Exam Head Exam: ATRAUMATIC, NORMAL INSPECTION, NORMOCEPHALIC - Eye Exam Eye Exam: EOMI, Normal appearance - ENT Exam ENT Exam: Mucous Membranes Moist, Normal Exam - Neck Exam Neck Exam: Full ROM - Respiratory Exam Respiratory Exam: NORMAL BREATHING PATTERN - Rectal Exam Rectal Exam: Deferred - Extremities Exam Extremities Exam: Full ROM, Normal Inspection - Neurological Exam Neurological Exam: Alert, Awake, CN II-XII Intact, Oriented x3 Neuro motor strength exam: Left Upper Extremity: 5, Right Upper Extremity: 4 (weaker compared to left, but improved), Left Lower Extremity: 5, Right Lower Extremity: 4 Additional comments: Gait is steady, however, slow. No shuffling of feet noted. Decreased fine motor movements on the right side. Right leg 4/5 strength. Left leg is 5/5 strength. - Psychiatric Exam Psychiatric exam: Normal Affect, Normal Mood - Skin Skin Exam: Normal Color, Warm Assessment and Plan (1) Acute ischemic stroke Status: Acute (2) Right sided weakness Status: Acute - Assessment and Plan (Free Text) Assessment: Mrs. Chan started on Eliquis 2.5 mg PO BID (started on 01/30/18) as there was no hemorrhagic conversion on the repeat CT Head from 01/29/18. -ECHO with Bubble Study (to rule out embolic cause of stroke) is ordered but not done yet. Will follow up with results upon completion. -Continue statin with Eliquis; may d/c ASA and Plavix. -Continue physical and occupational therapy. Case reviewed and discussed with Dr. Forrester, who agrees with the plan. Please do not hesitate to call back with any new developments, data updates or questions. Thank you for the opportunity to participate in the care of this patient.
--- NOTE | 2018-01-31 14:22 | CP.PCM.PN ---
<Radha Keyes - Last Filed: 01/31/18 14:22> Subjective - Date & Time of Evaluation Date of Evaluation: 01/31/18 Time of Evaluation: 08:45 - Subjective Subjective: PGY-1 Radha Keyes D.O. Medicine progress note for Dr. Murguia's service: Patient was seen and examined this morning. She states that she is feeling much better. She denies weakness of her right arm and believes it is back to baseline. She states that her right leg continues to be weak and she needs some assistance to walk. She denies RAINEY. Objective - Vital Signs/Intake and Output Vital Signs (last 24 hours): Temp Pulse Resp BP Pulse Ox 97.8 F 62 20 115/63 98 01/31/18 08:00 01/31/18 08:00 01/31/18 08:00 01/31/18 08:00 01/31/18 08:00 - Medications Medications: Current Medications Acetaminophen (Tylenol 325mg Tab) 650 mg PO Q6 PRN PRN Reason: Pain, moderate (4-7) Apixaban (Eliquis) 2.5 mg PO BID [facility] Last Admin: 01/31/18 09:09 Dose: 2.5 mg Rosuvastatin Calcium (Crestor) 10 mg PO HS [facility] Last Admin: 01/30/18 21:18 Dose: 10 mg - Labs Labs: 01/31/18 07:14 01/31/18 07:14 PT 11.7 SECONDS (9.7-12.2) 01/29/18 19:14 INR 1.1 01/29/18 19:14 APTT 30 SECONDS (21-34) 01/28/18 06:18 - Constitutional Appears: Non-toxic, No Acute Distress - Head Exam Head Exam: ATRAUMATIC, NORMAL INSPECTION - Eye Exam Eye Exam: EOMI, Normal appearance, PERRL - ENT Exam ENT Exam: Mucous Membranes Moist, Normal Exam - Neck Exam Neck Exam: Normal Inspection - Respiratory Exam Respiratory Exam: Clear to Ausculation Bilateral, NORMAL BREATHING PATTERN. absent: Accessory Muscle Use, Respiratory Distress - Cardiovascular Exam Cardiovascular Exam: REGULAR RHYTHM, +S1, +S2 - GI/Abdominal Exam GI & Abdominal Exam: Soft, Normal Bowel Sounds. absent: Tenderness, Rebound - Rectal Exam Rectal Exam: Deferred - Extremities Exam Extremities Exam: Normal Inspection - Neurological Exam Neurological Exam: Alert, Awake, CN II-XII Intact, Oriented x3 Neuro motor strength exam: Left Upper Extremity: 5, Right Upper Extremity: 5, Left Lower Extremity: 5, Right Lower Extremity: 3 - Psychiatric Exam Psychiatric exam: Normal Affect, Normal Mood Assessment and Plan - Assessment and Plan (Free Text) Assessment: Patient is a 62 yo female with history of TIA in 2017 who presented with R-sided weakness. She was found to have acute ischemic stroke of L posterior superior parietal lobe. She was started on therapeutic Lovenox and switched to Eliquis on 01/30. Her RUE has returned to baseline. She has residual RLE weakness. Plan: Ischemic CVA of L posterior superior parietal area - CT head: no acute intracranial abnormality - MRI brain: Small area of acute ischemia in the left posterior superior parietal subcortical region. Chronic infarcts again noted in the left posterior parieto-occipital watershed zone and right frontal lobes unchanged. No acute intracranial hemorrhage. - Carotid Doppler: no significant stenosis - CTA head/neck: no vascular abnormalities - Echo- EF 65-70%, no thrombus visualized - Bubble study pending - Crestor 10 mg PO QHS - Eliquis 2.5 mg PO BID - Discontinue ASA and Plavix - Neurology consulted (Gisella/Usama) - Cardiology consulted (Chasity) - PT/OT- rec TCU Ppx: VTE: SCDs, Eliquis GI: not indicated Code status: full code Case was discussed with attending, Dr. Murguia. <Valeria Murguia V - Last Filed: 01/31/18 18:49> Objective - Vital Signs/Intake and Output Vital Signs (last 24 hours): Temp Pulse Resp BP Pulse Ox 98.2 F 65 20 126/71 97 01/31/18 15:26 01/31/18 15:26 01/31/18 15:26 01/31/18 15:26 01/31/18 15:26 Intake and Output: 01/31/18 01/31/18 06:59 18:59 Intake Total 800 Balance 800 - Medications Medications: Current Medications Acetaminophen (Tylenol 325mg Tab) 650 mg PO Q6 PRN PRN Reason: Pain, moderate (4-7) Apixaban (Eliquis) 2.5 mg PO BID [facility] Last Admin: 01/31/18 09:09 Dose: 2.5 mg Rosuvastatin Calcium (Crestor) 10 mg PO HS [facility] Last Admin: 01/30/18 21:18 Dose: 10 mg - Labs Labs: 01/31/18 07:14 01/31/18 07:14 PT 11.7 SECONDS (9.7-12.2) 01/29/18 19:14 INR 1.1 01/29/18 19:14 APTT 30 SECONDS (21-34) 01/28/18 06:18 Attending/Attestation - Attestation I have personally seen and examined this patient.: Yes I have fully participated in the care of the patient.: Yes I have reviewed all pertinent clinical information, including history, physical exam and plan: Yes Notes (Text): Patient seen, examined, and case discussed with day-time resident. Patient seen this morning. Patient's right lower and upper extremity weakness improved compared to admission. Patient opts to have echocardiogram bubble as outpatient. Resident has spoken neurology, d/c aspirin/plavix and start eliquis 2.5mg PO BID. Physical therapy recommended for TCU. Patient is awaiting for physical therapy clearance. 1) Acute Ischemia CVA, Left posterior parietal region Right sided weakness Assessment/Plan * Neurology Dr. Obando consulted, help appreciated * Recommends non-contrast CT today of the head if does not show hemorrhagic conversion, then suggest for coumadin-->pending * Telemetry * Echocardiogram with bubble study-->for Wednesday * Carotid ultrasounds bilaterally completed noted below * Resident has discussed with Dr. Alanis, patient's neurologist who stated that patient has history of prior TIA in Mar 2016 on admission, when her prior MRI revealed acute left posterior parietal infarct. Carotid dopplers at that time were negative for stenosis. MRA done at that time was also unremarkable as per Dr. Alanis. He stated that patient can have ASA. * EKG: SR at 81, no ST-T changes. * CXR: 01/28/18 mild venous congestion. right hilar prominence. * CT Head (01/28/18) No acute intracranial abnormality. Chronic microvascular ischemic changes. Encephalomalacia from chronic infarcts in the right frontal and left parietal regions.Generalized parenchymal atrophy as demonstrated by symmetrical dilatation of the ventricles and sulci.If there is persistent concern for acute ischemic change, further evaluation with MRI is recommended. 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 Recommend follow- up thyroid ultrasound. Note that this report was placed in [place] review folder follow up * MRI brain (01/28/18) There appears to be small area of acute ischemia in the left posterior superior parietal subcortical region. Chronic infarcts again noted in the left posterior parieto-occipital watershed zone and right frontal lobes unchanged.No acute intracranial hemorrhage.Suspect small arachnoid cyst right superior posterior fronto- parietal region. Mild to moderate central volume loss. * Carotid doppler (01/28/18) RIGHT: Duplex scan does not suggest hemodynamically significant stenosis of the right extracranial carotid arteries. LEFT: Duplex scan does not suggest hemodynamically significant stenosis of the left extracranial carotid arteries. * Echocardiogram (no bubble): poor window, tds. normal size la, lv, ra and rv. normal lv wall motion, thickness, systolic and diastolic function with lvef [id number]%. grossly normal looking aortic, mitral, tv, pv not well seens, no pericardial effusion. * Echo bubble limited-->to be completed on Wednesday * Repeat CT head for today is pending * Aspirin 81mg PO daily, Plavix 75mg PO daily, Crestor 10mg PoqHS * A1c 6.3 * LEONORA X3: negative * Cardiology consult given possible embolic cause? * Neurology is suggesting for Coumadin given embolic nature of stroke * 01/29: patient's strength markedly improved over right upper and right lower extremity compared to yesterday; awaiting CT head. 2. Lipid Disorder Assessment/Plan * Crestor 10mg PO HS * Lipid panel: TG 53 Chol 125 LDL 59 HDL 68 3. S/P fall Assessment/Plan * Fall risk precaution * PT/OT eval * Noted imaging above illustrated new stroke * no visible ecchymoses or bruising noted on exam 4. Impaired glucose intolerance Assessment/Plan * hgba1c: 6.3 * Monitor in the next 3-4 months to prevent overt diabetes 5. PPX: * DVT Ppx: Lovenox 40mg SC daily * GI ppx: not indicated at this time * Heart healthy diet, 2g Na * PT/OT eval * Aspiration precautions * NS 100cc/hr Disposition: awaiting PT clearance. patient would like to do echocardiogram bubble as outpatient.
--- NOTE | 2018-01-31 18:45 | PN ---
DATE: 01/31/2018 SUBJECTIVE: The patient today. She denies any dizziness, headache or chest pain. PHYSICAL EXAMINATION VITAL SIGNS: Blood pressure 115/63, heart rate 62, temperature 97.8, respirations 20. HEENT: Normocephalic. CHEST: Clear. HEART: S1, S2 regular. EXTREMITIES: No edema. LABORATORY DATA: Today's hemoglobin, hematocrit, white count and platelet count are within normal limit. Today's SMA-7 is within normal limit except for glucose of 127 and creatinine 0.5. ASSESSMENT: 1. Recurrent cerebrovascular accident. The patient has at this time right hemiparesis, and brain MRI is consistent with an area of acute ischemia in the left posterosuperior parietal subcortical region. 2. Improved hypokalemia. RECOMMENDATIONS: Continue Crestor 10 mg once a day. The patient was started on Eliquis 2.5 mg twice a day. Awaiting echo study with bubble contrast. Volodymyr Gaspar MD
[2018-01-31 20:29] LABS: INR 1.3; PROTHROMBIN TIME 13.8 SECONDS (9.7-12.2)
[2018-02-01 06:23] LABS: BASO % 0.6 % (0.0-2.0); EOS % 0.4 % (0.0-4.0); HEMOGLOBIN 12.8 g/dL (11.0-16.0); LYMPH # 0.7 K/uL (1.0-4.3); MEAN CELL VOLUME 90.2 fL (81.0-99.0); MEAN CORPUSCULAR HEMOGLOBIN 31.5 pg (27.0-31.0); MEAN CORPUSCULAR HGB CONC 34.9 g/dL (33.0-37.0); MEAN PLATELET VOLUME 7.5 fL (7.2-11.7); MONO # 0.3 K/uL (0.0-0.8); MONO % 3.9 % (0.0-10.0); NEUT # 7.2 K/uL (1.8-7.0); NEUT % 87.1 % (50.0-75.0); PLATELET COUNT 185 K/uL (130-400); RBC 4.05 Mil/uL (3.80-5.20); RED CELL DISTRIBUTION WIDTH 12.9 % (11.5-14.5); WHITE BLOOD COUNT 8.2 K/uL (4.8-10.8)
[2018-02-01 06:42] LABS: ALB/GLOB RATIO 1.3 (1.0-2.1); ALBUMIN 3.5 g/dL (3.5-5.0); ALT/SGPT 57 U/L (9-52); AST/SGOT 57 U/L (14-36); BLOOD UREA NITROGEN 11 mg/dL (7-17); CALCIUM 8.8 mg/dl (8.6-10.4); GFR NON-AFRICAN AMERICAN > 60
[2018-02-01 08:13] LABS: EOSINOPHIL 1 % (0-4); LYMPHOCYTE 7 % (20-40); MONOCYTE 2 % (0-10); NEUTROPHIL 90 % (50-75); PLATELET ESTIMATE NORMAL (NORMAL); TOTAL CELLS COUNTED 100
--- NOTE | 2018-02-01 14:13 | CP.PCM.PN ---
Subjective - Date & Time of Evaluation Date of Evaluation: 02/01/18 Time of Evaluation: 11:30 - Subjective Subjective: Mrs. Chan is a 62 y/o female who is here for an acute ischemic stroke. Today she is good spirits and states that she feel good. She also expresses that she did well with physical therapy today and is looking forward to a discharge home this afternoon, as discussed with her primary medical team. She admits that her right arm weakness has resolved and is now at baseline. She still complains of some weakness to the right lower extremity, however, is comfortable ambulating with a walker safely. Patient currently denies headache, dizziness, visual changes, slurred speech, chest pain, palpitations, shortness of breath, nausea, vomiting, fatigue. No acute changes in condition overnight per nursing. Objective - Vital Signs/Intake and Output Vital Signs (last 24 hours): Temp Pulse Resp BP Pulse Ox 98.5 F 72 20 112/68 97 02/01/18 06:54 02/01/18 06:54 02/01/18 06:54 02/01/18 06:54 02/01/18 06:54 Intake and Output: 02/01/18 02/01/18 06:59 18:59 Intake Total 500 Balance 500 - Medications Medications: Current Medications Acetaminophen (Tylenol 325mg Tab) 650 mg PO Q6 PRN PRN Reason: Pain, moderate (4-7) Last Admin: 02/01/18 06:55 Dose: 650 mg Apixaban (Eliquis) 2.5 mg PO BID [facility] Last Admin: 02/01/18 10:01 Dose: 2.5 mg Rosuvastatin Calcium (Crestor) 10 mg PO HS [facility] Last Admin: 01/31/18 21:49 Dose: 10 mg - Labs Labs: 02/01/18 06:19 02/01/18 06:19 PT 13.8 SECONDS (9.7-12.2) H 01/31/18 20:00 INR 1.3 01/31/18 20:00 APTT 30 SECONDS (21-34) 01/28/18 06:18 - Constitutional Appears: Well, Non-toxic, No Acute Distress - Head Exam Head Exam: ATRAUMATIC, NORMAL INSPECTION, NORMOCEPHALIC - Eye Exam Eye Exam: EOMI, Normal appearance, PERRL Pupil Exam: NORMAL ACCOMODATION, PERRL - ENT Exam ENT Exam: Mucous Membranes Moist, Normal Exam - Neck Exam Neck Exam: Full ROM, Normal Inspection - Respiratory Exam Respiratory Exam: NORMAL BREATHING PATTERN - Extremities Exam Extremities Exam: Normal Inspection. absent: Calf Tenderness, Full ROM, Joint Swelling, Normal Capillary Refill, Pedal Edema, Tenderness - Neurological Exam Neurological Exam: Abnormal Gait (unsteady gait 2/2 RLE weakness), Alert, Awake, CN II-XII Intact, Oriented x3 Neuro motor strength exam: Left Upper Extremity: 5, Right Upper Extremity: 5, Left Lower Extremity: 5, Right Lower Extremity: 3 - Psychiatric Exam Psychiatric exam: Normal Affect, Normal Mood - Skin Skin Exam: Dry, Intact, Normal Color, Warm Assessment and Plan (1) Acute ischemic stroke Status: Acute (2) Right sided weakness Status: Acute - Assessment and Plan (Free Text) Assessment: Acute Ischemia CVA; Right sided weakness Assessment/Plan: Imaging: CT Head (01/28/18): No acute intracranial abnormality. Chronic microvascular ischemic changes. Encephalomalacia from chronic infarcts in the right frontal and left parietal regions.Generalized parenchymal atrophy as demonstrated by symmetrical dilatation of the ventricles and sulci. CTA head/neck (01/28/18): Azygos anterior cerebral artery which bifurcates into left than right A2 segments slightly more distally at the level of the lateral ventricles. Low-attenuation lesion left lobe thyroid gland. MRI brain (01/28/18): There appears to be small area of acute ischemia in the left posterior superior parietal subcortical region. Chronic infarcts again noted in the left posterior parieto-occipital watershed zone and right frontal lobes unchanged. No acute intracranial hemorrhage. Suspect small arachnoid cyst right superior posterior fronto- parietal region. Mild to moderate central volume loss. Carotid doppler (01/28/18) RIGHT: Duplex scan does not suggest hemodynamically significant stenosis of the right extracranial carotid arteries. LEFT: Duplex scan does not suggest hemodynamically significant stenosis of the left extracranial carotid arteries. Echocardiogram (no bubble): poor window, tds. normal size la, lv, ra and rv. normal lv wall motion, thickness, systolic and diastolic function with lvef [phone]%. grossly normal looking aortic, mitral, tv, pv not well seens, no pericardial effusion. Echo with bubble limited: completed today, 02/01/18; results pending and to be followed as outpatient. -Patient is neurologically stable for discharge home. -Upon discharged, continue Eliquis 2.5 mg PO BID and statin. -Continue ambulating with walker for safety. -Home or outpatient physical therapy recommended. -Follow up with Dr. Forrester in the office in 1 month. Thank you for allowing us to participate in this patient's care. Case reviewed and discussed with Dr. Forrester, who agrees with the plan.
--- NOTE | 2018-02-01 14:15 | CP.PCM.DIS ---
<Radha Keyes - Last Filed: 02/01/18 14:06> Provider - Provider Date of Admission: 01/28/18 07:28 Attending physician: Valeria Murguia DO Primary care physician: none Consults: cardiology neurology Time Spent in preparation of Discharge (in minutes): 45 Diagnosis - Discharge Diagnosis (1) Acute ischemic stroke Status: Acute Priority: High Hospital Course - Lab Results Lab Results: Most Recent Lab Values WBC 8.2 K/uL (4.8-10.8) D 02/01/18 06:19 RBC 4.05 Mil/uL (3.80-5.20) 02/01/18 06:19 Hgb 12.8 g/dL (11.0-16.0) 02/01/18 06:19 Hct 36.6 % (34.0-47.0) 02/01/18 06:19 MCV 90.2 fL (81.0-99.0) 02/01/18 06:19 MCH 31.5 pg (27.0-31.0) H 02/01/18 06:19 MCHC 34.9 g/dL (33.0-37.0) 02/01/18 06:19 RDW 12.9 % (11.5-14.5) 02/01/18 06:19 Plt Count 185 K/uL (130-400) 02/01/18 06:19 MPV 7.5 fL (7.2-11.7) 02/01/18 06:19 Neut % (Auto) 87.1 % (50.0-75.0) H 02/01/18 06:19 Lymph % (Auto) 8.0 % (20.0-40.0) L 02/01/18 06:19 [place] % (Auto) 3.9 % (0.0-10.0) 02/01/18 06:19 Eos % (Auto) 0.4 % (0.0-4.0) 02/01/18 06:19 Baso % (Auto) 0.6 % (0.0-2.0) 02/01/18 06:19 Neut # (Auto) 7.2 K/uL (1.8-7.0) H 02/01/18 06:19 Lymph # (Auto) 0.7 K/uL (1.0-4.3) L 02/01/18 06:19 [place] # (Auto) 0.3 K/uL (0.0-0.8) 02/01/18 06:19 Eos # (Auto) 0.0 K/uL (0.0-0.7) 02/01/18 06:19 Baso # (Auto) 0.0 K/uL (0.0-0.2) 02/01/18 06:19 Neutrophils % (Manual) 90 % (50-75) H 02/01/18 06:19 Lymphocytes % (Manual) 7 % (20-40) L 02/01/18 06:19 Monocytes % (Manual) 2 % (0-10) 02/01/18 06:19 Eosinophils % (Manual) 1 % (0-4) 02/01/18 06:19 Platelet Estimate Normal (NORMAL) 02/01/18 06:19 RBC Morphology Normal 02/01/18 06:19 ESR 3 mm/hr (0-20) 01/28/18 18:23 PT 13.8 SECONDS (9.7-12.2) H 01/31/18 20:00 INR 1.3 01/31/18 20:00 APTT 30 SECONDS (21-34) 01/28/18 06:18 Sodium 136 mmol/L (132-148) 02/01/18 06:19 Potassium 3.6 mmol/L (3.6-5.2) 02/01/18 06:19 Chloride 100 mmol/L (98-107) 02/01/18 06:19 Carbon Dioxide 26 mmol/L (22-30) 02/01/18 06:19 Anion Gap 15 (10-20) 02/01/18 06:19 BUN 11 mg/dL (7-17) 02/01/18 06:19 Creatinine 0.5 mg/dL (0.7-1.2) L 02/01/18 06:19 Est GFR ( Amer) > 60 02/01/18 06:19 Est GFR (Non-Af Amer) > 60 02/01/18 06:19 POC Glucose (mg/dL) 143 mg/dL (65-110) H 01/30/18 10:59 Random Glucose 118 mg/dL (65-105) H 02/01/18 06:19 Hemoglobin A1c 6.3 % (4.2-6.5) 01/28/18 06:18 Calcium 8.8 mg/dl (8.6-10.4) 02/01/18 06:19 Phosphorus 4.2 mg/dL (2.5-4.5) 02/01/18 06:19 Magnesium 1.8 mg/dL (1.6-2.3) 02/01/18 06:19 Total Bilirubin 0.9 mg/dL (0.2-1.3) 02/01/18:19 AST 57 U/L (14-36) H D 02/01/18 06:19 ALT 57 U/L (9-52) H D 02/01/18 06:19 Alkaline Phosphatase 55 U/L (38-126) 02/01/18 06:19 Total Creatine Kinase 69 U/L (30-135) 01/28/18 18:23 CK-MB (Mass) 0.57 ng/mL (0.0-3.38) 01/28/18 18: Troponin I < 0.0120 ng/mL (0.00-0.120) 01/28/18 18:23 C-Reactive Protein < 5.00 mg/L (0.0-9.9) 01/28/18 18:23 Total Protein 6.2 g/dL (6.3-8.3) L 02/01/18 06:19 Albumin 3.5 g/dL (3.5-5.0) 02/01/18: Globulin 2.7 gm/dL (2.2-3.9) 02/01/18: Albumin/Globulin Ratio 1.3 (1.0-2.1) 02/01/18 06:19 Triglycerides 55 mg/dL (0-149) 01/28/18 06:18 Cholesterol 125 mg/dL (0-199) 01/28/18:18 LDL Cholesterol Direct 59 mg/dL (0-129) 01/28/18:18 HDL Cholesterol 68 mg/dL (30-70) 01/28/18 06:18 Vitamin B12 845 pg/mL (239-931) 01/28/18 18:23 25-OH Vitamin D Total 43.3 NG/ML (30.0-100.0) 01/29/18 07:16 Folate 12.9 ng/mL 01/28/18 18:23 Free T4 0.99 ng/dL (0.78-2.19) 01/28/18 11:52 TSH 3rd Generation 1.06 mIU/L (0.46-4.68) 01/28/18 11:52 Urine Color Straw (YELLOW) 01/28/18 07:55 Urine Clarity Clear (Clear) 01/28/18 07:55 Urine pH 7.0 (5.0-8.0) 01/28/18 07:55 Ur Specific [place] 1.023 (1.003-1.030) 01/28/18 07:55 Urine Protein Negative mg/dL (NEGATIVE) 01/28/18 07:55 Urine Glucose (UA) Normal mg/dL (Normal) 01/28/18 07:55 Urine Ketones Negative mg/dL (NEGATIVE) 01/28/18 07:55 Urine Blood 1+ (NEGATIVE) H 01/28/18 07:55 Urine Nitrate Negative (NEGATIVE) 01/28/18 07:55 Urine Bilirubin Negative (NEGATIVE) 01/28/18 07:55 Urine Urobilinogen Normal mg/dL (0.2-1.0) 01/28/18 07:55 Ur Leukocyte Esterase Neg Arielle/uL (Negative) 01/28/18 07:55 Urine WBC (Auto) < 1 /hpf (0-5) 01/28/18 07:55 Urine RBC (Auto) 1 /hpf (0-3) 01/28/18 07:55 Ur Squamous Epith Cells < 1 /hpf (0-5) 01/28/18 07:55 SIMONE Screen Negative (Negative) 01/28/18 18:23 Blood Type B POSITIVE 01/28/18 06:24 Antibody Screen Negative 01/28/18 06:24 - Hospital Course Hospital Course: Patient is a 62 year old female who presents after she experienced right sided arm and leg weakness after she woke up at 5am this morning. She was last seen at baseline at 9pm prior to going to bed. She states she took 1 to 2 steps after she woke up and experienced shaking of her right leg after which she fell straight down to the floor. She found she could no longer move her right arm or her right leg. She landed on her buttock, aggravating her pain in her low back. She denies losing consciousness or hitting her head when she fell down. Daughter at bedside states she heard her fall and ran to patient and found her with her eyes open, not shaking, but unable to move her right arm or her right leg. Patient states she felt that the right side of her jaw was more tired and heavy, but was unable to state if she felt like she had any slurred speech. She experienced some nausea at that time. Daughter called ambulance to bring patient in to the hospital via ambulance. She states she began to recover strength in her right arm after she arrived to the ED. She currently states she is unable to move her right leg. She states she had a prior TIA in March 2016 when she was admitted to [facility], and has been on Plavix since. She was able to move all her extremities after her last TIA. She currently denies fevers, chills, headache, lightheadedness, chest pain, shortness of breath, abdominal pain, vomiting, diarrhea, diaphoresis, palpitations, urinary discomfort, leg pain or leg swelling. She admits she had a recent left ear infection for which she was treated with a 7 day course of Penicillin which she finished yesterday. Initial CT head did not show any acute abnormalities, but MRI brain: Small area of acute ischemia in the left posterior superior parietal subcortical region. Chronic infarcts again noted in the left posterior parieto-occipital watershed zone and right frontal lobes unchanged. No acute intracranial hemorrhage. Carotid Dopplers and CTA head/neck did not show any significant stenoses or abnormalities. Permissive HTN was allowed for the first 48 hrs of admission. Echo showed 65-70% EF without evidence of thrombus. Patient had bubble study- final results pending. Patient was started on ASA and Crestor in addition to her home Plavix. Patient worked with PT and OT. Neurology recommended chemical anticoagulation based on the history of two embolic appearing strokes and possible cardiac arrhythmia, and the patient was started on Eliquis. Therefore, ASA and Plavix were discontinued prior to discharge. Upon discharge, patient's RUE has returned to baseline. RLE has residual weakness, but she is able to ambulate on her own with a walker. She is tolerating Eliquis well. Discharge Exam - Head Exam Head Exam: ATRAUMATIC, NORMAL INSPECTION - Eye Exam Eye Exam: EOMI, Normal appearance, PERRL - ENT Exam ENT Exam: Mucous Membranes Moist - Neck Exam Neck exam: Normal Inspection - Respiratory Exam Respiratory Exam: Clear to PA & Lateral, NORMAL BREATHING PATTERN, UNREMARKABLE - Cardiovascular Exam Cardiovascular Exam: REGULAR RHYTHM, +S1, +S2 - GI/Abdominal Exam GI & Abdominal Exam: Normal Bowel Sounds, Soft, Unremarkable. absent: Tenderness - Rectal Exam Rectal Exam: Deferred - Extremities Exam Extremities exam: normal capillary refill, normal inspection, pedal pulses present - Neurological Exam Neurological exam: Abnormal Gait (with walker), Alert, CN II-XII Intact, Oriented x3 - Psychiatric Exam Psychiatric exam: Normal Affect, Normal Mood - Skin Skin Exam: Dry, Intact, Normal Color, Warm Discharge Plan - Discharge Medications Prescriptions: Apixaban [Eliquis] 2.5 mg PO BID 30 Days #60 tab Rosuvastatin Calcium [Crestor] 10 mg PO HS #30 tab - Follow Up Plan Condition: IMPROVED Disposition: HOME/ ROUTINE Patient education suggested?: Yes Instructions: Stroke (DC), Apixaban, Rosuvastatin Additional Instructions: Please follow-up at the [facility] in [place] on 02/28. This will serve as your primary care provider. Additionally, please follow-up with neurology at the clinic at [facility] ([phone]). You will be given a prescription and coupon card for Eliquis. Take 2.5 mg twice daily. You will be given a prescription for Crestor. Take 10 mg each night. STOP taking aspirin and Plavix. You will be given a prescription for a rolling walker and physical therapy as an outpatient. If symptoms recur, please return to the nearest emergency room. Por favor oneyda el seguimiento en la [facility] en [place] el 02/28. [place] servir cassy domínguez proveedor de atencin primaria. Adems, oneyda un seguimiento con neurologa en la clnica del [facility] ([phone]). Le darn adilia receta y adilia tarjeta de cupn para Eliquis. [place] 2,5 mg dos veces al da. Le darn adilia receta para Crestor. [place] 10 mg cada noche. Deje de marcelo aspirina y Plavix. Se le angelina adilia receta para un caminante rodante y terapia fsica cassy paciente ambulatorio. Si los sntomas se repiten, por favor regrese a la segun de emergencias ms philipp. Referrals: Volodymyr Gaspar MD [Staff Provider] - Navdeep Obando MD [Staff Provider] - Sue Forrester MD [Staff Provider] - <Valeria Murguia V - Last Filed: 02/02/18 09:51> Provider - Provider Date of Admission: 01/28/18 07:28 Attending physician: Valeria Murguia, DO Hospital Course - Lab Results Lab Results: Most Recent Lab Values WBC 8.2 K/uL (4.8-10.8) D 02/01/18 06:19 RBC 4.05 Mil/uL (3.80-5.20) 02/01/18 06:19 Hgb 12.8 g/dL (11.0-16.0) 02/01/18 06:19 Hct 36.6 % (34.0-47.0) 02/01/18 06:19 MCV 90.2 fL (81.0-99.0) 02/01/18 06:19 MCH 31.5 pg (27.0-31.0) H 02/01/18 06:19 MCHC 34.9 g/dL (33.0-37.0) 02/01/18 06:19 RDW 12.9 % (11.5-14.5) 02/01/18 06:19 Plt Count 185 K/uL (130-400) 02/01/18 06:19 MPV 7.5 fL (7.2-11.7) 02/01/18 06:19 Neut % (Auto) 87.1 % (50.0-75.0) H 02/01/18 06:19 Lymph % (Auto) 8.0 % (20.0-40.0) L 02/01/18 06:19 [place] % (Auto) 3.9 % (0.0-10.0) 02/01/18 06:19 Eos % (Auto) 0.4 % (0.0-4.0) 02/01/18 06:19 Baso % (Auto) 0.6 % (0.0-2.0) 02/01/18 06:19 Neut # (Auto) 7.2 K/uL (1.8-7.0) H 02/01/18 06:19 Lymph # (Auto) 0.7 K/uL (1.0-4.3) L 02/01/18 06:19 [place] # (Auto) 0.3 K/uL (0.0-0.8) 02/01/18 06:19 Eos # (Auto) 0.0 K/uL (0.0-0.7) 02/01/18 06:19 Baso # (Auto) 0.0 K/uL (0.0-0.2) 02/01/18 06:19 Neutrophils % (Manual) 90 % (50-75) H 02/01/18 06:19 Lymphocytes % (Manual) 7 % (20-40) L 02/01/18 06:19 Monocytes % (Manual) 2 % (0-10) 02/01/18 06:19 Eosinophils % (Manual) 1 % (0-4) 02/01/18 06:19 Platelet Estimate Normal (NORMAL) 02/01/18 06:19 RBC Morphology Normal 02/01/18 06:19 ESR 3 mm/hr (0-20) 01/28/18 18:23 PT 13.8 SECONDS (9.7-12.2) H 01/31/18 20:00 INR 1.3 01/31/18 20:00 APTT 30 SECONDS (21-34) 01/28/18 06:18 Sodium 136 mmol/L (132-148) 02/01/18 06:19 Potassium 3.6 mmol/L (3.6-5.2) 02/01/18 06:19 Chloride 100 mmol/L (98-107) 02/01/18 06:19 Carbon Dioxide 26 mmol/L (22-30) 02/01/18 06:19 Anion Gap 15 (10-20) 02/01/18 06:19 BUN 11 mg/dL (7-17) 02/01/18 06:19 Creatinine 0.5 mg/dL (0.7-1.2) L 02/01/18 06:19 Est GFR ( Amer) > 60 02/01/18 06:19 Est GFR (Non-Af Amer) > 60 02/01/18 06:19 POC Glucose (mg/dL) 143 mg/dL (65-110) H 01/30/18 10:59 Random Glucose 118 mg/dL (65-105) H 02/01/18 06:19 Hemoglobin A1c 6.3 % (4.2-6.5) 01/28/18 06:18 Calcium 8.8 mg/dl (8.6-10.4) 02/01/18 06:19 Phosphorus 4.2 mg/dL (2.5-4.5) 02/01/18 06:19 Magnesium 1.8 mg/dL (1.6-2.3) 02/01/18 06:19 Total Bilirubin 0.9 mg/dL (0.2-1.3) 02/01/18 06:19 AST 57 U/L (14-36) H D 02/01/18 06:19 ALT 57 U/L (9-52) H D 02/01/18 06:19 Alkaline Phosphatase 55 U/L (38-126) 02/01/18 06:19 Total Creatine Kinase 69 U/L (30-135) 01/28/18 18:23 CK-MB (Mass) 0.57 ng/mL (0.0-3.38) 01/28/18 18:23 Troponin I < 0.0120 ng/mL (0.00-0.120) 01/28/18 18:23 C-Reactive Protein < 5.00 mg/L (0.0-9.9) 01/28/18 18:23 Total Protein 6.2 g/dL (6.3-8.3) L 02/01/18 06:19 Albumin 3.5 g/dL (3.5-5.0) 02/01/18 06:19 Globulin 2.7 gm/dL (2.2-3.9) 02/01/18 06:19 Albumin/Globulin Ratio 1.3 (1.0-2.1) 02/01/18 06:19 Triglycerides 55 mg/dL (0-149) 01/28/18 06:18 Cholesterol 125 mg/dL (0-199) 01/28/18 06:18 LDL Cholesterol Direct 59 mg/dL (0-129) 01/28/18 06:18 HDL Cholesterol 68 mg/dL (30-70) 01/28/18 06:18 Vitamin B12 845 pg/mL (239-931) 01/28/18 18:23 25-OH Vitamin D Total 43.3 NG/ML (30.0-100.0) 01/29/18 07:16 Folate 12.9 ng/mL 01/28/18 18:23 Free T4 0.99 ng/dL (0.78-2.19) 01/28/18 11:52 TSH 3rd Generation 1.06 mIU/L (0.46-4.68) 01/28/18 11:52 Urine Color Straw (YELLOW) 01/28/18 07:55 Urine Clarity Clear (Clear) 01/28/18 07:55 Urine pH 7.0 (5.0-8.0) 01/28/18 07:55 Ur Specific [place] 1.023 (1.003-1.030) 01/28/18 07:55 Urine Protein Negative mg/dL (NEGATIVE) 01/28/18 07:55 Urine Glucose (UA) Normal mg/dL (Normal) 01/28/18 07:55 Urine Ketones Negative mg/dL (NEGATIVE) 01/28/18 07:55 Urine Blood 1+ (NEGATIVE) H 01/28/18 07:55 Urine Nitrate Negative (NEGATIVE) 01/28/18 07:55 Urine Bilirubin Negative (NEGATIVE) 01/28/18 07:55 Urine Urobilinogen Normal mg/dL (0.2-1.0) 01/28/18 07:55 Ur Leukocyte Esterase Neg Arielle/uL (Negative) 01/28/18 07:55 Urine WBC (Auto) < 1 /hpf (0-5) 01/28/18 07:55 Urine RBC (Auto) 1 /hpf (0-3) 01/28/18 07:55 Ur Squamous Epith Cells < 1 /hpf (0-5) 01/28/18 07:55 SIMONE Screen Negative (Negative) 01/28/18 18:23 Blood Type B POSITIVE 01/28/18 06:24 Antibody Screen Negative 01/28/18 06:24 Clinical Quality Measures - CQM - Stroke Antithrombotic Prescribed: Medical Contraindication Present Contranindication/Reason for not providing: Risk for Bleeding If Other selected, reason for not providing: on eliquis Anticoagulation Prescribed for Atrial Flutter, Atrial Fibrillation and History of:: Yes Statin prescribed: Yes Attending/Attestation - Attestation I have personally seen and examined this patient.: Yes I have fully participated in the care of the patient.: Yes I have reviewed all pertinent clinical information, including history, physical exam and plan: Yes Notes (Text): This is late computer entry for 02/01/18. Patient seen, examined, and case discussed with day-time resident. Patient seen this morning. Patient's right lower and upper extremity weakness improved compared to admission. Patient seen working with physical therapy this morning. Patient completed echo bubble follow-up outpatient report. patient on discharge given eliquis 2.5mg PO bid for one month supply, directed to [employer] who will honor the coupon to offset the cost, she was explained risk of bleeding while on this medication since the reversal to stop bleeding is not out yet which she is aware as well as a statin on discharge. Aspirin/Plavix on dc to reduce bleeding risk; I have also spoken with cardiology who are aware. Patient/daughter willing to buy sessions of physical therapy as outpatient and script for rolling walker provided on discharge. Stroke measures completed. Upon discharge, patient recommended to establish care at the [facility], she has made one for February 08 at [place] and advised to make a follow-up appointment with neurology as well. This is a summary of patient's hospitalization. Please see EMR for full detail of record. 1) Discharge Diagnoses 1) Acute Ischemia CVA, Left posterior parietal region Right sided weakness--Improved Assessment/Plan * Neurology Dr. Obando/Dr. Forrester consulted, help appreciated * Resident has discussed with Dr. Alanis, patient's neurologist who stated that patient has history of prior TIA in Mar 2016 on admission, when her prior MRI revealed acute left posterior parietal infarct. Carotid dopplers at that time were negative for stenosis. MRA done at that time was also unremarkable as per Dr. Alanis. He stated that patient can have ASA. * EKG: SR at 81, no ST-T changes. * CXR: 01/28/18 mild venous congestion. right hilar prominence. * CT Head (01/28/18) No acute intracranial abnormality. Chronic microvascular ischemic changes. Encephalomalacia from chronic infarcts in the right frontal and left parietal regions.Generalized parenchymal atrophy as demonstrated by symmetrical dilatation of the ventricles and sulci.If there is persistent concern for acute ischemic change, further evaluation with MRI is recommended. 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 Recommend follow- up thyroid ultrasound. Note that this report was placed in [place] review folder follow up * MRI brain (01/28/18) There appears to be small area of acute ischemia in the left posterior superior parietal subcortical region. Chronic infarcts again noted in the left posterior parieto-occipital watershed zone and right frontal lobes unchanged.No acute intracranial hemorrhage.Suspect small arachnoid cyst right superior posterior fronto- parietal region. Mild to moderate central volume loss. * Carotid doppler (01/28/18) RIGHT: Duplex scan does not suggest hemodynamically significant stenosis of the right extracranial carotid arteries. LEFT: Duplex scan does not suggest hemodynamically significant stenosis of the left extracranial carotid arteries. * Echocardiogram (no bubble): poor window, tds. normal size la, lv, ra and rv. normal lv wall motion, thickness, systolic and diastolic function with lvef [id number]%. grossly normal looking aortic, mitral, tv, pv not well seens, no pericardial effusion. * Echo bubble limited completed awaiting official report * Eliquis 2.5mg PO BID Crestor 10mg PoqHS * A1c 6.3 * LEONORA X3: negative 2. Lipid Disorder Assessment/Plan * Crestor 10mg PO HS * Lipid panel: TG 53 Chol 125 LDL 59 HDL 68 3. S/P fall Assessment/Plan * Fall risk precaution * PT/OT eval * Noted imaging above illustrated new stroke * no visible ecchymoses or bruising noted on exam * refused rehab * patient and daughter want to do outpatient physical therapy and willing to pay out of pocket 4. Impaired glucose intolerance Assessment/Plan * hgba1c: 6.3 * Monitor in the next 3-4 months to prevent overt diabetes 5. PPX: * GI ppx: not indicated at this time * Heart healthy diet, 2g Na * PT/OT eval * Aspiration precautions
[2018-02-01 15:45] VITALS: BP 117/71; PULSE 74; TEMP 98.2; O2SAT 95
--- NOTE | 2018-02-01 22:11 | CARD ---
APPROVED REPORT Date of service: 01/28/2018 EKG Measurement Heart [id number] <Conclusion> Normal sinus rhythm Nonspecific T wave abnormality Abnormal ECG
--- NOTE | 2018-02-01 22:26 | CARD ---
APPROVED REPORT Date of service: 01/28/2018 EKG Measurement Heart [id number] <Conclusion> Sinus rhythm with short MO Low voltage QRS Borderline ECG
--- NOTE | 2018-02-03 00:22 | CARD ---
APPROVED REPORT Date of service: 02/01/2018 EXAM: LIMITED Two-dimensional echocardiogram with saline bubble. Other Information Quality : GoodRhythm : INDICATION CVA/TIA Mitral Valve E/A ratio0.0 TDI E/Lateral E'0.0E/Medial E'0.0 LEFT VENTRICLE The left ventricle is normal size. There is normal left ventricular wall thickness. Left ventricle systolic function is normal. The Ejection Fraction is 65-70%. RIGHT VENTRICLE The right ventricle is normal size. There is normal right ventricular wall thickness. The right ventricular systolic function is normal. ATRIA The left atrium size is normal. The right atrium size is normal. The discontinuity of the interatrial septum is suggestive of an atrial septal defect, Injection of bubbles documented an interatrial shunt. The atrial septum is aneurysmal. <Conclusion> Left ventricle systolic function is normal. The Ejection Fraction is 65-70%. The discontinuity of the interatrial septum is suggestive of an atrial septal defect, Injection of bubbles documented an interatrial shunt. The atrial septum is aneurysmal.
== END 2018-02-01 18:52 | disposition home or self-care (01) | DRG 45 ==
LOC: C.ER 06:07 → C.5S 07:28
PROVIDERS: ADMIT Hospitalist; ATTEND Hospitalist
DX: I63.9 Cerebral infarction, unspecified (principal); G81.91 Hemiplegia, unspecified affecting right dominant side; G93.89 Other specified disorders of brain; R73.02 Impaired glucose tolerance (oral); E78.5 Hyperlipidemia, unspecified; E87.6 Hypokalemia; I10 Essential (primary) hypertension; M25.552 Pain in left hip; W18.30XA Fall on same level, unspecified, initial encounter; Z86.73 Personal history of transient ischemic attack (TIA), and cerebral infarction without residual deficits; Y92.009 Unspecified place in unspecified non-institutional (private) residence as the place of occurrence of the external cause; Z79.01 Long term (current) use of anticoagulants

== ENCOUNTER 2018-03-31 08:23 | Outpatient (CLI) | payer BC | END 2018-03-31 08:24 | disposition home or self-care (01) | LOC: C.PAT 08:23 | DX: I67.2 Cerebral atherosclerosis (principal) ==

== ENCOUNTER 2018-04-01 10:00 | Day surgery (SDC) | payer BC ==
[2018-03-31 08:35] VITALS: BMI 24.4
[2018-04-01] MEDS ORDERED: Propofol 10 mg/ml Inj (20 ML) ONE (11:04)
--- NOTE | 2018-04-01 23:21 | CARD ---
APPROVED REPORT Date of service: 04/01/2018 EXAM: Two-dimensional and M-mode echocardiogram with Doppler and color Doppler. INDICATION aortic stenosis Mitral Valve E/A ratio0.0 TDI E/Lateral E'0.0E/Medial E'0.0 Reason For Test : Rule out cardiac source of emboli. PROCEDURE After obtaining informed consent, patient underwent transesophageal echo in the [facility]. Type of Sedation : Conscious Sedation Sedation was provided by anesthesiologist. Sedation was achieved with intravenously. The HARDIK was performed complications. Throughout the procedure, the blood pressure, pulse oximetry, cardiac rhythm, and rate were monitored. The patient tolerated the procedure without adverse effects. Recovery from conscious sedation was uneventful and vital signs were stable. LEFT VENTRICLE The left ventricle is normal size. The left ventricular function is normal. The left ventricular ejection fraction is within the normal range. There is normal LV segmental wall motion. RIGHT VENTRICLE The right ventricle is normal size. The right ventricular systolic function is normal. ATRIA The left atrium size is normal. The right atrium size is normal. PFO with bubble cross over noted AORTIC VALVE The aortic valve is normal in structure. The aortic valve is normal in structure. No aortic regurgitation is present. There is no aortic valvular stenosis. There is no aortic valvular vegetation. MITRAL VALVE The mitral valve is normal in structure. The mitral valve is normal in structure. There is no evidence of mitral valve prolapse. There is no mitral valve stenosis. Mitral regurgitation is mild. TRICUSPID VALVE The tricuspid valve is normal in structure. There is mild tricuspid regurgitation. There is no tricuspid valve stenosis. PULMONIC VALVE The pulmonary valve is normal in structure. GREAT VESSELS The aortic root is normal in size. <Conclusion> The left ventricular function is normal. The left ventricular ejection fraction is within the normal range. The right ventricle is normal size. PFO with bubble cross over noted
== END 2018-04-01 13:40 | disposition home or self-care (01) ==
LOC: C.CATHLAB 10:00
PROVIDERS: ATTEND Internal Medicine Cardiovascular Disease
DX: I35.0 Nonrheumatic aortic (valve) stenosis (principal)
CPT/HCPCS: 93312; J2001; J2704

== ENCOUNTER 2018-05-20 08:50 | Outpatient (CLI) | payer BC | END 2018-05-20 08:51 | disposition home or self-care (01) | LOC: C.CARD 08:50 | DX: R00.2 Palpitations (principal); I67.2 Cerebral atherosclerosis ==